=== PATIENT | male | born 1955 | race Hispanic/Latino ===

== ENCOUNTER 2018-01-24 20:36 | Emergency (ER) | payer BC ==
[2018-01-24 22:09] LABS: Urine Blood 3+ (NEG); Urine Glucose 1+ (NEG); Urine Protein 2+ (NEG); Urine pH 8.5 (5.0-7.0)
[2018-01-24 22:11] LABS: Urine Bacteria <20 /HPF (NONE SEEN); Urine Culture Reflex Order NOT NEEDED; Urine RBC >50 /HPF (NONE SEEN)
[2018-01-24 23:47] LABS: Absolute Lymphocytes (CBC) 1.2 K/uL (0.7-4.9); Absolute Monocytes 0.6 K/uL (0.1-1.3); Absolute Neutrophil 5.9 K/uL (1.8-8.0); Basophils % 1.1 % (0-1.3); Eosinophils % 2.9 % (0-4.4); Hematocrit 38.7 % (39.6-49.0); Lymphocytes % 14.7 % (15.3-44.8); MCH 30.1 pg (27.0-35.0); MCV 89.1 fL (80-100); MPV 8.5 fL (7.6-11.3); RBC Red Blood Cell Count 4.34 M/uL (4.33-5.43)
[2018-01-24 23:57] LABS: Bicarbonate 27 mEq/L (21-31); Glucose Level 186 mg/dL (65-120); Potassium 3.9 mEq/L (3.6-5.0); Sodium Level 135 mEq/L (135-145)
[2018-01-24 23:58] LABS: BUN Blood Urea Nitrogen 28 mg/dL (6-20); Glomerular Filtration Rate > 90 mL/min (=/>90)
--- NOTE | 2018-01-25 00:09 | ER ---
Nurse's Notes [facility] Name: Bryan Crawford Age: 62 yrs Sex: Male : 1955 Arrival Date: 01/24/2018 Time: 20:40 Bed 15 Private MD: Diagnosis: Enlarged prostate with lower urinary tract symptoms;Hematuria Presentation: 01/24 20:53 Presenting complaint: Patient states: Blood in urine since this AM. Denies pain. aj Transition of care: patient was not received from another setting of care. Onset of symptoms was January 24, 2018. Care prior to arrival: None. 20:53 Method Of Arrival: Ambulatory aj 20:53 Acuity: MIGUELINA 3 aj Triage Assessment: 20:56 General: Appears in no apparent distress. comfortable, Behavior is calm, cooperative, aj appropriate for age. Pain: Denies pain. Neuro: Level of Consciousness is awake, alert, obeys commands, Oriented to person, place, time, situation. Respiratory: Airway is patent Respiratory effort is even, unlabored, Respiratory pattern is regular, symmetrical. : Reports blood in urine. Derm: Skin is intact, is healthy with good turgor, Skin is pink, warm \\T\\ dry. normal. Historical: - Allergies: 20:56 No Known Allergies; aj - Home Meds: 20:56 glipizide 10 mg oral tab [Active]; finasteride 5 mg oral tab 1 tab once daily [Active]; aj - PMHx: 20:56 Hypertension; Diabetes - NIDDM; aj - PSHx: 20:56 "prostate surgery"; aj - Immunization history:: Adult Immunizations up to date. - Social history:: Smoking status: Patient/guardian denies using tobacco. Screenin:33 Abuse screen: Denies threats or abuse. Denies injuries from another. Nutritional ao screening: No deficits noted. Tuberculosis screening: No symptoms or risk factors identified. Fall Risk None identified. Assessment: 21:28 General: Appears in no apparent distress. comfortable, Behavior is calm, cooperative, ao appropriate for age. Pain: Denies pain. Neuro: Level of Consciousness is awake, alert, obeys commands, Oriented to person, place, time, situation, Moves all extremities. Speech is normal, Facial symmetry appears normal. Cardiovascular: Denies chest pain, shortness of breath, Heart tones S1 S2 Capillary refill < 3 seconds Patient's skin is warm and dry. Respiratory: Airway is patent Respiratory effort is even, unlabored, Respiratory pattern is regular, symmetrical, Breath sounds are clear bilaterally. GI: Abdomen is round Bowel sounds present X 4 quads. : Reports burning with urination, urgency, urinary frequency, Blood in the urine. EENT: No signs and/or symptoms were reported regarding the EENT system. Derm: No signs and/or symptoms reported regarding the dermatologic system. Musculoskeletal: No signs and/or symptoms reported regarding the musculoskeletal system. 21:55 Reassessment: Patient appears in no apparent distress at this time. No changes from ao previously documented assessment. Patient and/or family updated on plan of care and expected duration. Pain level reassessed. Patient is alert, oriented x 3, equal unlabored respirations, skin warm/dry/pink. Waiting on a provider. 22:51 Reassessment: Bladder scanner patient had 159 ML in the bladder after an hour he ao urinate. 23:25 Reassessment: Patient appears in no apparent distress at this time. Patient and/or ao family updated on plan of care and expected duration. Pain level reassessed. Patient is alert, oriented x 3, equal unlabored respirations, skin warm/dry/pink. Waiting on CT report Patient denies pain at this time. Vital Signs: 20:56 BP 139 / 80; Pulse 90; Resp 20; Temp 98.1; Pulse Ox 97% on R/A; Weight 86.18 kg; Height aj 5 ft. 6 in. (167.64 cm); Pain 0/10; 21:55 BP 141 / 83; Pulse 88; Resp 16; Pulse Ox 97% on R/A; Pain 0/10; ao 23:25 BP 132 / 78; Pulse 71; Resp 16; Pulse Ox 97% on R/A; Pain 0/10; ao 20:56 Body Mass Index 30.67 (86.18 kg, 167.64 cm) aj ED Course: 20:40 Patient arrived in ED. al2 20:54 Triage completed. aj 20:56 Arm band placed on left wrist. Patient placed in waiting room, Patient notified of wait aj time. 21:28 Tera Bullard, RN is Primary Nurse. ao 21:33 Patient has correct armband on for positive identification. Pulse ox on. NIBP on. ao 21:44 Inserted saline lock: 20 gauge in right antecubital area, using aseptic technique. jb5 Blood collected. 22:29 Concepcion Rojas F[facility]-C [facility]. snw 22:30 Dannie Casillas MD is Attending Physician. snw 22:51 Bladder scan completed. 159 ML left in the Bladder. ao 22:58 CT Stone Protocol In Process Unspecified. EDAK 01/25 00:08 Alvin Avila MD is Referral Physician. snw 00:28 No provider procedures requiring assistance completed. IV discontinued, intact, ao bleeding controlled, No redness/swelling at site. Pressure dressing applied. Administered Medications: 00:20 Drug: Rocephin 1 grams Route: IV; Rate: calculated rate; Site: left antecubital; ao 00:27 Follow up: IV Status: Completed infusion; Infusion continued upon admission ao 00:27 Drug: Cipro 500 mg Route: PO; ao 00:27 Follow up: Response: Medication administered at discharge. ao Outcome: 00:09 Discharge ordered by . snw 00:28 Discharged to home ambulatory. ao 00:28 Condition: stable 00:28 Discharge instructions given to patient, Instructed on discharge instructions, follow up and referral plans. Demonstrated understanding of instructions, follow-up care, medications, Prescriptions given X 1. 00:29 Patient left the ED. ao Signatures: Dispatcher [employer] Nae Quintana, RN Concepcion Lira FNP-C FNP-Csnw Tera Bullard RN Astrid Bryant [id number] Trinidad Steele2
--- NOTE | 2018-01-25 00:09 | EDPHYS ---
Physician Documentation [facility] Name: Bryan Crawford Age: 62 yrs Sex: Male : 1955 Arrival Date: 01/24/2018 Time: 20:40 Bed 15 Private MD: ED Dannie Arellano HPI: 01/24 23:34 This 62 yrs old Male presents to ER via Ambulatory with complaints of Urinary snw Problem, BLOOD IN URINE. 23:34 The patient presents with hematuria. Onset: The symptoms/episode began/occurred snw suddenly, 0430 today. Modifying factors: The symptoms are alleviated by nothing. Associated signs and symptoms: The patient has no apparent associated signs or symptoms. Severity of symptoms: At their worst the symptoms were mild. The patient has not experienced similar symptoms in the past. The patient has not recently seen a physician. hx of DM, HTN. Historical: - Allergies: 20:56 No Known Allergies; aj - Home Meds: 20:56 glipizide 10 mg oral tab [Active]; finasteride 5 mg oral tab 1 tab once daily [Active]; aj - PMHx: 20:56 Hypertension; Diabetes - NIDDM; aj - PSHx: 20:56 "prostate surgery"; aj - Immunization history:: Adult Immunizations up to date. - Social history:: Smoking status: Patient/guardian denies using tobacco. ROS: 23:34 Constitutional: Negative for fever, chills, and weight loss, Eyes: Negative for injury, snw pain, redness, and discharge, ENT: Negative for injury, pain, and discharge, Neck: Negative for injury, pain, and swelling, Cardiovascular: Negative for chest pain, palpitations, and edema, Respiratory: Negative for shortness of breath, cough, wheezing, and pleuritic chest pain, Abdomen/GI: Negative for abdominal pain, nausea, vomiting, diarrhea, and constipation, Back: Negative for injury and pain, MS/Extremity: Negative for injury and deformity, Skin: Negative for injury, rash, and discoloration, Neuro: Negative for headache, weakness, numbness, tingling, and seizure. 23:34 : Positive for hematuria. Exam: 23:34 Constitutional: This is a well developed, well nourished patient who is awake, alert, snw and in no acute distress. Head/Face: Normocephalic, atraumatic. Eyes: Pupils equal round and reactive to light, extra-ocular motions intact. Lids and lashes normal. Conjunctiva and sclera are non-icteric and not injected. Cornea within normal limits. Periorbital areas with no swelling, redness, or edema. ENT: Nares patent. No nasal discharge, no septal abnormalities noted. Tympanic membranes are normal and external auditory canals are clear. Oropharynx with no redness, swelling, or masses, exudates, or evidence of obstruction, uvula midline. Mucous membranes moist. Neck: Trachea midline, no thyromegaly or masses palpated, and no cervical lymphadenopathy. Supple, full range of motion without nuchal rigidity, or vertebral point tenderness. No Meningismus. Chest/axilla: Normal chest wall appearance and motion. Nontender with no deformity. No lesions are appreciated. Cardiovascular: Regular rate and rhythm with a normal S1 and S2. No gallops, murmurs, or rubs. Normal PMI, no JVD. No pulse deficits. Respiratory: Lungs have equal breath sounds bilaterally, clear to auscultation and percussion. No rales, rhonchi or wheezes noted. No increased work of breathing, no retractions or nasal flaring. Abdomen/GI: Soft, non-tender, with normal bowel sounds. No distension or tympany. No guarding or rebound. No evidence of tenderness throughout. Back: No spinal tenderness. No costovertebral tenderness. Full range of motion. Skin: Warm, dry with normal turgor. Normal color with no rashes, no lesions, and no evidence of cellulitis. MS/ Extremity: Pulses equal, no cyanosis. Neurovascular intact. Full, normal range of motion. Neuro: Awake and alert, GCS 15, oriented to person, place, time, and situation. Cranial nerves II-XII grossly intact. Motor strength 5/5 in all extremities. Sensory grossly intact. Cerebellar exam normal. Normal gait. Vital Signs: 20:56 BP 139 / 80; Pulse 90; Resp 20; Temp 98.1; Pulse Ox 97% on R/A; Weight 86.18 kg; Height aj 5 ft. 6 in. (167.64 cm); Pain 0/10; 21:55 BP 141 / 83; Pulse 88; Resp 16; Pulse Ox 97% on R/A; Pain 0/10; ao 23:25 BP 132 / 78; Pulse 71; Resp 16; Pulse Ox 97% on R/A; Pain 0/10; ao 20:56 Body Mass Index 30.67 (86.18 kg, 167.64 cm) aj MDM: 22:30 Patient medically screened. snw 01/25 00:17 Data reviewed: vital signs, nurses notes. Data interpreted: Pulse oximetry: on room air snw is 97 %. Interpretation: normal. Counseling: I had a detailed discussion with the patient and/or guardian regarding: the historical points, exam findings, and any diagnostic results supporting the discharge/admit diagnosis, the presence of at least one elevated blood pressure reading (>120/80) during this emergency department visit, lab results, radiology results, the need for outpatient follow up, to return to the emergency department if symptoms worsen or persist or if there are any questions or concerns that arise at home. Special discussion: Based on the patient's Hx, exam, and Dx evaluation, there is no indication for emergent surgery or inpatient Tx. It is understood by the patient/guardian that if the Sx's persist or worsen they need to return immediately for re-evaluation. I have referred the patient to see his PCP for further evaluation of high blood pressure. Based on the history and exam findings, there is no indication for further emergent testing or inpatient evaluation. I discussed with the patient/guardian the need to see the primary care provider for further evaluation of the symptoms. I discussed with the patient/guardian the need to see the urologist for further evaluation of the symptoms. 01/24 20:51 Order name: Urine Culture [facility] 01/24 20:51 Order name: Urine Microscopic Only; Complete Time: 22:30 snw 01/24 22:06 Order name: Urine Dipstick--Ancillary (enter results); Complete Time: 22:30 em1 01/24 23:29 Order name: CBC with Diff; Complete Time: 23:52 ao 01/24 23:29 Order name: Chem 7; Complete Time: 00:05 ao 01/24 23:35 Order name: CPK; Complete Time: 00:05 snw 01/24 20:51 Order name: Urine Dipstick-Ancillary (obtain specimen); Complete Time: 21:37 snw 01/24 22:31 Order name: Bladder Scanner; Complete Time: 22:49 snw 01/24 22:31 Order name: CT Stone Protocol [facility] Administered Medications: 00:20 Drug: Rocephin 1 grams Route: IV; Rate: calculated rate; Site: left antecubital; ao 00:27 Follow up: IV Status: Completed infusion; Infusion continued upon admission ao 00:27 Drug: Cipro 500 mg Route: PO; ao 00:27 Follow up: Response: Medication administered at discharge. ao Disposition: 07:04 Co-signature as Attending Physician, Dannie Casillas MD I agree with the assessment and robe plan of care. Disposition: 01/25/18 00:09 Discharged to Home. Impression: Enlarged prostate with lower urinary tract symptoms, Hematuria. - Condition is Stable. - Discharge Instructions: Benign Prostatic Hypertrophy, Hematuria, Adult. - Prescriptions for Cipro 500 mg Oral Tablet - take 1 tablet by ORAL route every 12 hours for 7 days; 14 tablet. - Medication Reconciliation Form, Thank You Letter, Antibiotic Education, Prescription Opioid Use form. - Follow up: Alvin Avila MD; When: 2 - 3 days; Reason: Recheck today's complaints, Continuance of care, Re-evaluation by your physician. Signatures: Dispatcher [employer] Nae Quintana, Dannie Paiz RN, MD MD cha Therrien, Shelly, SENIOR ONLINE MARKETING MANAGER-C SENIOR ONLINE MARKETING MANAGER-Csnw Tera Bullard RN YON alegre
[2018-01-25] MEDS ORDERED: CEFTRIAXONE/SWI 1gm 1 GM/10 ML SYR ONE (00:16)
[2018-01-25] MEDS ORDERED: CIPROFLOXACIN HCL 500 MG TAB ONE (00:16)
--- NOTE | 2018-01-25 08:36 | RAD REPORT ---
EXAM DESCRIPTION: CT - Stone Protocol - 01/25/2018 6:42 am CLINICAL HISTORY: Abdominal pain, flank pain, hematuria. A preliminary written report was provided at the time of the study, and the report was reviewed prio r to final dictation. COMPARISON: None. TECHNIQUE: Axial 5 mm thick images were obtained without oral or IV contrast. The [id number] span s the entirety of the system including uppermost abdomen and lung bases. All CT scans are performed using dose optimization technique as appropriate and may include automated exposure control or mA/KV adjustment according to patient size. FINDINGS: No hydronephrosis is present and no obstructing ureteral calculi. No suspicious renal mass es. Isodense masses and pyelonephritis are not excluded on a stone protocol CT scan. No bladder calcu li and no bladder wall thickening seen. Prominent symmetric seminal vesicles are present. Prostate gl and is quite enlarged measuring 7.5 x 6.9 cm in AP and transverse dimensions. Prostate projects into the bladder base. CT imaging is limited in ability to assess extrinsic compression versus invasion. A few prostate calcifications are present. Imaged portions of the liver, spleen and pancreas show no suspicious findings on non-contrast imaging . Gallbladder is contracted. No biliary tree dilatation. Gallstones can be occult. No significant adr enal finding. No stomach or small bowel suspicious finding. There is moderate stool volume filling but not dilating the entire colon. Only trace amounts of diverticulosis noted. No active GI process seen. No mass or bulky lymphadenopathy. A very small 1 centimeter umbilical hernia is present. Fat extends into the origin of each inguinal canal. No acute component No free air, free fluid or inflammatory st randing. Prominent disc and bony degenerative changes are present. There is a 50% wedge compression deformity of the L2 body. No additional finding seen that would indicate this is an acute process. IMPRESSION: Marked enlargement of the prostate gland causing mass effect of the bladder base. No hydronephrosis, obstructing calculus or acute finding otherwise noted. Isodense masses and pyelonephritis are not excluded on stone protocol technique. Bowel and solid abdominal viscera are without acute finding. Advanced lumbar spine degenerative change with 50% L2 compression fracture suspected to be old.
== END 2018-01-25 00:29 | disposition home or self-care (01) ==
LOC: ER 20:36
DX: N40.1 Benign prostatic hyperplasia with lower urinary tract symptoms (principal); I10 Essential (primary) hypertension; E11.9 Type 2 diabetes mellitus without complications
CPT/HCPCS: 36415; 74176; 76377; 80048; 81003; 81015; 82550; 85025; 87086; 87088; 96374; 99284; J0696

== ENCOUNTER 2021-08-07 19:11 | Emergency (ER) | payer BC ==
--- NOTE | 2021-08-07 20:00 | EDPHYS ---
Physician Documentation [facility] Name: Bryan Crawford Age: 65 yrs Sex: Male : 1955 Arrival Date: 08/07/2021 Time: 19:14 Bed 23 Private MD: ED Physician Dannie Casillas HPI: 08/07 19:57 This 65 yrs old Male presents to ER via Ambulatory with complaints of High jmm Blood Pressure, High Blood Sugar. 19:57 Onset: The symptoms/episode began/occurred at an unknown time. Is a 65-year-old male jmm with a history of diabetes mellitus and hypertension the presents emerged department with complaints of elevated blood pressure and high blood sugar. Denies chest pain, shortness of breath, vomiting, abdominal pain. Patient states he is been out of his medication. Patient states he takes glipizide, Metformin, and an unknown blood pressure medication. Patient sees his PCP this Sunday.. Historical: - Allergies: 19:25 No Known Allergies; em - PMHx: 19:25 Diabetes - NIDDM; Hypertension; em - PSHx: 19:25 prostate; em - Immunization history:: Client reports having NOT received the Covid vaccine. - Social history:: Smoking status: Patient denies any tobacco usage or history of. ROS: 19:57 Constitutional: Negative for fever, chills, and weight loss, Cardiovascular: Negative jmm for chest pain, palpitations, and edema, Respiratory: Negative for shortness of breath, cough, wheezing, and pleuritic chest pain, Abdomen/GI: Negative for abdominal pain, nausea, vomiting, diarrhea, and constipation. 19:57 All other systems are negative. Exam: 19:57 Constitutional: This is a well developed, well nourished patient who is awake, alert, jmm and in no acute distress. Head/Face: atraumatic. Eyes: EOMI, no conjunctival erythema appreciated ENT: Moist Mucus Membranes Neck: Trachea midline, Supple Chest/axilla: Normal chest wall appearance and motion. Cardiovascular: Regular rate and rhythm. No edema appreciated Respiratory: Normal respirations, no respiratory distress appreciated Abdomen/GI: Non distended, soft Back: Normal ROM Skin: General appearance color normal MS/ Extremity: Moves all extremities, no obvious deformities appreciated, no edema noted to the lower extremities Neuro: Awake and alert, normal gait Psych: Behavior is normal, Mood is normal, Patient is cooperative and pleasant Vital Signs: 19:22 BP 169 / 100; Pulse 74; Resp 18; Temp 98.7; Pulse Ox 100% on R/A; Weight 90.26 kg; em Height 5 ft. 6 in. (167.64 cm); Pain 0/10; 19:30 BP 125 / 66; Pulse 76; Resp 20; Pulse Ox 100% on R/A; cc4 20:05 BP 143 / 68; Pulse 76; Resp 20; Temp 98.1; Pulse Ox 99% on R/A; cc4 19:22 Body Mass Index 32.12 (90.26 kg, 167.64 cm) em MDM: 19:29 Patient medically screened. [facility] 19:58 Data reviewed: vital signs, nurses notes. Counseling: I had a detailed discussion with carmelita the patient and/or guardian regarding: the historical points, exam findings, and any diagnostic results supporting the discharge/admit diagnosis, lab results, the need for outpatient follow up, to return to the emergency department if symptoms worsen or persist or if there are any questions or concerns that arise at home. ED course: Patient is alert nontoxic in appearance NAD. Patient is unsure of his dosages. Unable to provide refills but was given patient strict return precautions. Patient understood and agrees to plan of care.. Administered Medications: No medications were administered Disposition: 08/08 10:42 Co-signature as Attending Physician, Dannie Casillas MD I agree with the assessment and [facility] plan of care. Disposition Summary: 08/07/21 19:59 Discharge Ordered Location: Home [facility] Condition: Stable [facility] Diagnosis - Hyperglycemia, unspecified [facility] Followup: [facility] - With: Private Physician - When: 2 - 3 days - Reason: Recheck today's complaints, Continuance of care, Re-evaluation by your physician Discharge Instructions: - Discharge Summary Sheet [facility] - Hyperglycemia [facility] Forms: - Medication Reconciliation Form [facility] - Thank You Letter marge - Antibiotic Education [facility] - Prescription Opioid Use [facility] Prescriptions: - Metformin 500 mg Oral Tablet - take 1 tablet by ORAL route once daily for 7 days Then take 1 tablet with [facility] morning meals AND evening meals; 21 tablet; Refills: 0, Product Selection Permitted Signatures: Dannie Casillas MD MD cha Mickail, Joel, PA PA jmm Munoz Sincere, RN RN em
--- NOTE | 2021-08-07 20:00 | ER ---
Nurse's Notes [facility] Name: Bryan Crawford Age: 65 yrs Sex: Male : 1955 Arrival Date: 08/07/2021 Time: 19:14 Bed 23 Private MD: Diagnosis: Hyperglycemia, unspecified Presentation: 08/07 19:22 Chief complaint: Patient states: checked his BP at home and was 160s systolic at home, em also checked BGL and read 289 at 6 pm, denies chest pain, headache, or n/v. Coronavirus screen: Vaccine status: Patient reports being unvaccinated. Ebola Screen: Patient negative for fever greater than or equal to 101.5 degrees Fahrenheit, and additional compatible Ebola Virus Disease symptoms Patient denies exposure to infectious person. Patient denies travel to an Ebola-affected area in the 21 days before illness onset. No symptoms or risks identified at this time. Initial Sepsis Screen: Does the patient meet any 2 criteria? No. Patient's initial sepsis screen is negative. Does the patient have a suspected source of infection? No. Patient's initial sepsis screen is negative. Risk Assessment: Do you want to hurt yourself or someone else? Patient reports no desire to harm self or others. Onset of symptoms was August 07, 2021. 19:22 Method Of Arrival: Ambulatory em 19:22 Acuity: MIGUELINA 3 em Historical: - Allergies: 19:25 No Known Allergies; em - PMHx: 19:25 Diabetes - NIDDM; Hypertension; em - PSHx: 19:25 prostate; em - Immunization history:: Client reports having NOT received the Covid vaccine. - Social history:: Smoking status: Patient denies any tobacco usage or history of. Screenin:30 Abuse screen: Denies threats or abuse. Nutritional screening: No deficits noted. cc4 Tuberculosis screening: No symptoms or risk factors identified. Fall Risk None identified. Assessment: 19:30 General: Appears in no apparent distress. Behavior is calm, cooperative. Pain: Denies cc4 pain. Neuro: No deficits noted. Level of Consciousness is awake, alert, obeys commands, Oriented to person, place, time, situation. Cardiovascular: No deficits noted. Denies chest pain. Respiratory: No deficits noted. Airway is patent Breath sounds are clear bilaterally. GI: No deficits noted. No signs and/or symptoms were reported involving the gastrointestinal system. GI: Abdomen is round non-distended, Bowel sounds present X 4 quads. : No signs and/or symptoms were reported regarding the genitourinary system. EENT: No signs and/or symptoms were reported regarding the EENT system. Derm: No signs and/or symptoms reported regarding the dermatologic system. Skin is intact. Musculoskeletal: No deficits noted. No signs and/or symptoms reported regarding the musculoskeletal system. Capillary refill < 3 seconds, Range of motion: intact in all extremities. Vital Signs: 19:22 BP 169 / 100; Pulse 74; Resp 18; Temp 98.7; Pulse Ox 100% on R/A; Weight 90.26 kg; em Height 5 ft. 6 in. (167.64 cm); Pain 0/10; 19:30 BP 125 / 66; Pulse 76; Resp 20; Pulse Ox 100% on R/A; cc4 20:05 BP 143 / 68; Pulse 76; Resp 20; Temp 98.1; Pulse Ox 99% on R/A; cc4 19:22 Body Mass Index 32.12 (90.26 kg, 167.64 cm) em ED Course: 19:14 Patient arrived in ED. cf2 19:25 Triage completed. em 19:25 Arm band placed on. 19:27 Mckayla Ellison, YON is Primary Nurse. cc4 19:27 Primo Kuhn PA is PHCP. [facility] 19:27 Lorenzo Sanchez MD is Attending Physician. [facility] 19:29 Attending Physician role handed off by Lorenzo Sanchez MD [facility] 19:29 Dannie Casillas MD is Attending Physician. [facility] 19:30 Patient has correct armband on for positive identification. Bed in low position. Call cc4 light in reach. Side rails up X 1. 20:05 No provider procedures requiring assistance completed. cc4 20:05 Patient did not have IV access during this emergency room visit. cc4 Administered Medications: No medications were administered Outcome: 19:59 Discharge ordered by . [facility] 20:05 Condition: stable cc4 20:05 Discharged to home ambulatory. cc4 20:05 Discharge instructions given to patient, Instructed on discharge instructions, follow up and referral plans. medication usage, Demonstrated understanding of instructions, follow-up care, medications. 20:15 Patient left the ED. cc4 Signatures: Dannie Casillas MD MD cha Mickail, Joel, PA PA jmm Munoz, Edgar, RN RN Ryland Fraire [facility] Mckayla Ellison RN RN cc4
[2021-08-07 20:23] VITALS: BP 143/68; TEMP 98.1; O2SAT 99
== END 2021-08-07 20:15 | disposition home or self-care (01) ==
LOC: ER 19:11
DX: E11.65 Type 2 diabetes mellitus with hyperglycemia (principal); I10 Essential (primary) hypertension
CPT/HCPCS: 99281

== ENCOUNTER 2023-02-09 09:11 | Emergency (ER) | payer BC, OTHER ==
--- OUTSIDE RECORDS SUMMARY | 2023-02-09 09:18 | XMS REPORT | Continuity of Care Document ---
:1955 Author Organization [facility] t Address [address] [facility] [address] [place] [address] Care Team Providers Name Role Phone [place] Bravo Primary Care Physician [phone] Problems This patient has no known problems. Allergies, Adverse Reactions, Alerts This patient has no known allergies or adverse reactions. Medications Ordered Filled Start Stop Current Ordering Indication Dosage Frequency Signature Comments Components Source Medication Medication Date Date Medication? Clinician (SIG) Name Name LISINOPRIL/ 2-0 No HYDROCHLORO 8-19 THI 20-12.5 00:00: TAB 00 Jardiance 2-0 No 1mg 10 mg 6-06 tablet 00:00: 00 Dose 2022-0 No Unknown 6-06 00:00: 00 Januvia 100 2-0 No 1mg mg tablet 6-06 00:00: 00 lisinopril 2022-0 No 1mg 20 6-06 mg-hydrochl 00:00: orothiazide 00 12.5 mg tablet glipizide 2-0 No 1mg ER 10 mg 6-06 tablet, 00:00: extended 00 release 24 hr metformin 2022-0 No 1mg 1,000 mg 6-06 tablet 00:00: 00 Dose 2022-0 No Unknown 6-06 00:00: 00 metformin 2022-0 No 1mg 1,000 mg 5-27 tablet 00:00: 00 glipizide 2022-0 No 1mg ER 10 mg 5-27 tablet, 00:00: extended 00 release 24 hr lisinopril 2022-0 No 1mg 20 5-27 mg-hydrochl 00:00: orothiazide 00 12.5 mg tablet pravastatin 2-0 No 1mg 20 mg 5-27 tablet 00:00: 00 Januvia 100 2022-0 No 1mg mg tablet 5-27 00:00: 00 Dose 2022-0 No Unknown 5-27 00:00: 00 pravastatin 2-0 No 1mg 40 mg 4-25 tablet 00:00: 00 lisinopril 2-0 No 1mg 20 4-22 mg-hydrochl 00:00: orothiazide 00 12.5 mg tablet pravastatin 2-0 No 1mg 20 mg 4-22 tablet 00:00: 00 Januvia 100 2-0 No 1mg mg tablet 4-22 00:00: 00 metformin 2-0 No 1mg 1,000 mg 4-22 tablet 00:00: 00 glipizide 2-0 No 1mg ER 10 mg 4-22 tablet, 00:00: extended 00 release 24 hr Dose 2-0 No Unknown 4-22 00:00: 00 Dose 2-0 No Unknown 4-22 00:00: 00 Dose 2-0 No Unknown 4-22 00:00: 00 Dose 2022-0 No Unknown 4-22 00:00: 00 Dose 2022-0 No Unknown 4-22 00:00: 00 Dose 2022-0 No Unknown 4-22 00:00: 00 Dose 2022-0 No Unknown 4-22 00:00: 00 Dose 2022-0 No Unknown 4-22 00:00: 00 Dose 2-0 No Unknown 4-22 00:00: 00 Dose 2022-0 No Unknown 4-22 00:00: 00 Dose 2022-0 No Unknown 4-22 00:00: 00 Dose 1-1 No Unknown 0-29 00:00: 00 Dose 1-1 No Unknown 0-29 00:00: 00 Dose 1-1 No Unknown 0-29 00:00: 00 Dose 1-1 No Unknown 0-29 00:00: 00 Dose 1-1 No Unknown 0-25 00:00: 00 Victoza 1-0 No (18 2-Francisco J 0.6 4-22 mg/3 mg/0.1 mL 00:00: mL) (18 mg/3 00 mL) subcutaneou s pen injector pravastatin 2020-0 No 1mg 20 mg 4-17 tablet 00:00: 00 lisinopril 2020-0 No 1mg 20 4-17 mg-hydrochl 00:00: orothiazide 00 12.5 mg tablet glipizide 1-0 No 1mg ER 10 mg 4-17 tablet, 00:00: extended 00 release 24 hr metformin 1-0 No 1mg 1,000 mg 4-17 tablet 00:00: 00 pravastatin 1-0 No 1mg 20 mg 3-15 tablet 00:00: 00 lisinopril 1-0 No 1mg 20 3-15 mg-hydrochl 00:00: orothiazide 00 12.5 mg tablet metformin 1-0 No 1mg 500 mg 3-15 tablet 00:00: 00 glipizide 1-0 No 1mg ER 10 mg 3-15 tablet, 00:00: extended 00 release 24 hr metformin 2019-1 No 1mg 500 mg 2-05 tablet 00:00: 00 pravastatin 2020-1 No 1mg 20 mg 2-04 tablet 00:00: 00 lisinopril 2019-1 No 1mg 20 2-04 mg-hydrochl 00:00: orothiazide 00 12.5 mg tablet metformin 2019-1 No 1mg 500 mg 2-04 tablet 00:00: 00 glipizide 2019-1 No 1mg ER 10 mg 2-04 tablet, 00:00: extended 00 release 24 hr metformin 2020-1 No 1mg 500 mg 1-28 tablet 00:00: 00 pravastatin 2020-1 No 1mg 20 mg 1-28 tablet 00:00: 00 lisinopril 2020-1 No 1mg 20 1-28 mg-hydrochl 00:00: orothiazide 00 12.5 mg tablet glipizide 2019-1 No 1mg ER 10 mg 1-28 tablet, 00:00: extended 00 release 24 hr metformin 2020-0 No 1mg 500 mg 4-25 tablet 00:00: 00 pravastatin 2020-0 No 1mg 20 mg 4-25 tablet 00:00: 00 lisinopril 2020-0 No 1mg 20 4-25 mg-hydrochl 00:00: orothiazide 00 12.5 mg tablet metformin 2020-0 No 1mg 1,000 mg 4-25 tablet 00:00: 00 glipizide 2020-0 No 1mg ER 10 mg 4-25 tablet, 00:00: extended 00 release 24 hr metformin 2020-0 No 1mg 500 mg 4-13 tablet 00:00: 00 pravastatin 2020-0 No 1mg 20 mg 4-13 tablet 00:00: 00 lisinopril 2020-0 No 1mg 20 4-13 mg-hydrochl 00:00: orothiazide 00 12.5 mg tablet glipizide 2020-0 No 1mg ER 10 mg 4-13 tablet, 00:00: extended 00 release 24 hr metformin 2020-0 No 1mg 1,000 mg 4-13 tablet 00:00: 00 metformin 2019-1 No 1mg 500 mg 0-05 tablet 00:00: 00 pravastatin 2019-1 No 1mg 20 mg 0-05 tablet 00:00: 00 lisinopril 2019-1 No 1mg 20 0-05 mg-hydrochl 00:00: orothiazide 00 12.5 mg tablet metformin 2019-1 No 1mg 1,000 mg 0-05 tablet 00:00: 00 metformin 2019-0 No 1mg 500 mg 4-06 tablet 00:00: 00 pravastatin 2019-0 No 1mg 20 mg 4-06 tablet 00:00: 00 lisinopril 2019-0 No 1mg 20 4-06 mg-hydrochl 00:00: orothiazide 00 12.5 mg tablet metformin 2019-0 No 1mg 1,000 mg 4-06 tablet 00:00: 00 metformin 2018-0 No 1mg 500 mg 9-14 tablet 00:00: 00 pravastatin 2018-0 No 1mg 20 mg 9-14 tablet 00:00: 00 lisinopril 2018-0 No 1mg 20 9-14 mg-hydrochl 00:00: orothiazide 00 12.5 mg tablet metformin 2018-0 No 1mg 1,000 mg 9-14 tablet 00:00: 00 metformin 2018-0 No 1mg 500 mg 7-14 tablet 00:00: 00 lisinopril 2018-0 No 1mg 20 6-04 mg-hydrochl 00:00: orothiazide 00 12.5 mg tablet pravastatin 2018-0 No 1mg 20 mg 6-04 tablet 00:00: 00 metformin 2018-0 No 1mg 1,000 mg 6-04 tablet 00:00: 00 lisinopril 2018-0 No 1mg 20 5-14 mg-hydrochl 00:00: orothiazide 00 12.5 mg tablet pravastatin 2018-0 No 1mg 20 mg 5-14 tablet 00:00: 00 metformin 2018-0 No 1mg 1,000 mg 5-14 tablet 00:00: 00 lisinopril 2018-0 No 1mg 20 1-13 mg-hydrochl 00:00: orothiazide 00 12.5 mg tablet pravastatin 2018-0 No 1mg 20 mg 1-13 tablet 00:00: 00 metformin 2018-0 No 1mg 1,000 mg 1-13 tablet 00:00: 00 lisinopril 2017-1 No 1mg 20 2-28 mg-hydrochl 00:00: orothiazide 00 12.5 mg tablet metformin 2017-1 No 1mg 1,000 mg 2-28 tablet 00:00: 00 pravastatin 2017-1 No 1mg 20 mg 2-18 tablet 00:00: 00 lisinopril 2017-0 No 1mg 20 6-06 mg-hydrochl 00:00: orothiazide 00 12.5 mg tablet metformin 2017-0 No 1mg 1,000 mg 6-06 tablet 00:00: 00 lisinopril 2017-0 No 1mg 20 1-04 mg-hydrochl 00:00: orothiazide 00 12.5 mg tablet metformin 2017-0 No 1mg 1,000 mg 1-04 tablet 00:00: 00 lisinopril 2015-1 No 1mg 20 2-07 mg-hydrochl 00:00: orothiazide 00 12.5 mg tablet metformin 2015-1 No 1mg 1,000 mg 2-07 tablet 00:00: 00 lisinopril 2016-0 No 1mg 20 8-26 mg-hydrochl 00:00: orothiazide 00 12.5 mg tablet metformin 2016-0 No 1mg 1,000 mg 8-26 tablet 00:00: 00 lisinopril 2016-0 No 1mg 20 5-06 mg-hydrochl 00:00: orothiazide 00 12.5 mg tablet metformin 2015-0 No 1mg 1,000 mg 5-06 tablet 00:00: 00 metformin 2014-1 No 1mg 1,000 mg 2-23 tablet 00:00: 00 lisinopril 2014-1 No 1mg 20 2-23 mg-hydrochl 00:00: orothiazide 00 12.5 mg tablet lisinopril 2014-0 No 1mg 20 8-28 mg-hydrochl 00:00: orothiazide 00 12.5 mg tablet metformin 2014-0 No 1mg 1,000 mg 8-28 tablet 00:00: 00 lisinopril 2014-0 No 1mg 20 3-21 mg-hydrochl 00:00: orothiazide 00 12.5 mg tablet lisinopril 2014-0 No 1mg 20 3-21 mg-hydrochl 00:00: orothiazide 00 12.5 mg tablet metformin 2014-0 No 1mg 1,000 mg 3-21 tablet 00:00: 00 metformin 2014-0 No 1mg 1,000 mg 3-21 tablet 00:00: 00 Vital Signs Vital Name Observation Time Observation Value Comments Source BP Systolic 2022-06-23 09:38:00 155 mm[Hg] BP Diastolic 2022-06-23 09:38:00 83 mm[Hg] Weight Measured 2022-06-23 09:38:00 190.40 pounds Height Measured 2022-06-23 09:38:00 67.00 inches Body Temperature 2022-06-23 09:38:00 98.20 degrees Heart Rate 2022-06-23 09:38:00 73.00 /min Respiratory Rate 2022-06-23 09:38:00 18.00 /min BP Systolic 2022-03-18 08:29:00 138 mm[Hg] BP Diastolic 2022-03-18 08:29:00 83 mm[Hg] Weight Measured 2022-03-18 08:29:00 189.20 pounds Height Measured 2022-03-18 08:29:00 67.00 inches Body Temperature 2022-03-18 08:29:00 97.70 degrees Heart Rate 2022-03-18 08:29:00 72.00 /min Respiratory Rate 2022-03-18 08:29:00 BP Systolic 2022-02-03 08:42:00 151 mm[Hg] BP Diastolic 2022-02-03 08:42:00 87 mm[Hg] Weight Measured 2022-02-03 08:42:00 190.40 pounds Height Measured 2022-02-03 08:42:00 67.00 inches Body Temperature 2022-02-03 08:42:00 97.20 degrees Heart Rate 2022-02-03 08:42:00 78.00 /min Respiratory Rate 2022-02-03 08:42:00 16.00 /min BP Systolic 2021-08-12 09:31:00 180 mm[Hg] BP Diastolic 2021-08-12 09:31:00 92 mm[Hg] Weight Measured 2021-08-12 09:31:00 191.40 pounds Height Measured 2021-08-12 09:31:00 67.00 inches Body Temperature 2021-08-12 09:31:00 98.10 degrees Heart Rate 2021-08-12 09:31:00 55.00 /min Respiratory Rate 2021-08-12 09:31:00 16.00 /min BP Systolic 2021-08-05 09:19:00 184 mm[Hg] BP Diastolic 2021-08-05 09:19:00 90 mm[Hg] Weight Measured 2021-08-05 09:19:00 191.60 pounds Height Measured 2021-08-05 09:19:00 67.00 inches Body Temperature 2021-08-05 09:19:00 98.00 degrees Heart Rate 2021-08-05 09:19:00 73.00 /min Respiratory Rate 2021-08-05 09:19:00 17.00 /min BP Systolic 2021-01-29 08:35:00 138 mm[Hg] BP Diastolic 2021-01-29 08:35:00 72 mm[Hg] Weight Measured 2021-01-29 08:35:00 182.80 pounds Height Measured 2021-01-29 08:35:00 67.00 inches Body Temperature 2021-01-29 08:35:00 97.70 degrees Heart Rate 2021-01-29 08:35:00 63.00 /min Respiratory Rate 2021-01-29 08:35:00 17.00 /min BP Systolic 2021-01-29 08:20:00 138 mm[Hg] BP Diastolic 2021-01-29 08:20:00 72 mm[Hg] Weight Measured 2021-01-29 08:20:00 182.80 pounds Height Measured 2021-01-29 08:20:00 67.00 inches Body Temperature 2021-01-29 08:20:00 97.70 degrees Heart Rate 2021-01-29 08:20:00 63.00 /min Respiratory Rate 2021-01-29 08:20:00 17.00 /min BP Systolic 2020-09-17 10:33:00 150 mm[Hg] BP Diastolic 2020-09-17 10:33:00 83 mm[Hg] Weight Measured 2020-09-17 10:33:00 188.20 pounds Height Measured 2020-09-17 10:33:00 67.00 inches Body Temperature 2020-09-17 10:33:00 98.50 degrees Heart Rate 2020-09-17 10:33:00 60.00 /min Respiratory Rate 2020-09-17 10:33:00 16.00 /min BP Systolic 2020-09-17 09:36:00 150 mm[Hg] BP Diastolic 2020-09-17 09:36:00 83 mm[Hg] Weight Measured 2020-09-17 09:36:00 188.20 pounds Height Measured 2020-09-17 09:36:00 67.00 inches Body Temperature 2020-09-17 09:36:00 98.50 degrees Heart Rate 2020-09-17 09:36:00 60.00 /min Respiratory Rate 2020-09-17 09:36:00 16.00 /min BP Systolic 2020-02-07 14:31:00 127 mm[Hg] BP Diastolic 2020-02-07 14:31:00 73 mm[Hg] Weight Measured 2020-02-07 14:31:00 178.40 pounds Height Measured 2020-02-07 14:31:00 67.00 inches Body Temperature 2020-02-07 14:31:00 98.00 degrees Heart Rate 2020-02-07 14:31:00 90.00 /min Respiratory Rate 2020-02-07 14:31:00 17.00 /min Procedures Procedure Date / Time Performed Performing Clinician [facility] e [address] Ecg Routine Ecg W/least 2016-07-29 00:00:00 Lds W/i r Plan of Care Planned Activity Planned Date Details Comments Source Goal Plan of Care Note [code = 06411-4] Goal Plan of Care Note [code = 65847-1] Goal Plan of Care Note [code = 69337-3] Goal Plan of Care Note [code = 00886-9] Goal Plan of Care Note [code = 19999-7] Goal Plan of Care Note [code = 20144-5] Goal Plan of Care Note [code = 06199-9] Goal Plan of Care Note [code = 60414-1] Goal Plan of Care Note [code = 92092-6] Goal Plan of Care Note [code = 15451-0] Goal Plan of Care Note [code = 86684-6] Goal Plan of Care Note [code = 35871-5] Goal Plan of Care Note [code = 09073-8] Goal Plan of Care Note [code = 90427-6] Goal Plan of Care Note [code = 84515-4] Goal Plan of Care Note [code = 55779-4] Goal Plan of Care Note [code = 20081-3] Goal Plan of Care Note [code = 92847-9] Encounters Start End Encounter Admission Attending Care Care Encounter Source Date/Time Date/Time Type Type Clinicians Facility Department ID 2023-02-02 2023-02-02 Outpatient [facility] [id number] 09:15:08 09:15:08 [address] [place] 2023-01-26 2023-01-26 Outpatient [facility] S[facility] [id number] 11:11:22 11:11:22 [address] [place] 2022-09-25 2022-09-25 Outpatient [facility] SFA [id number] [facility] 17:38:13 17:38:13 [address] [place] 2022-06-23 2022-06-23 Outpatient [id number] 00:00:00 00:00:00 Visit [id number] Results Test Description Test Time Test Comments Results Result Comments Source RENAL FUNCTION PANEL 2023-02-03 04:17:16 Test Item Value Reference Range Interpretation Comme nts GLUCOSE (test code = 2217) 161 MG/DL 70-99 H BUN (test code = 2208) 21 MG/DL 8-23 CREATININE (test code = 0.94 MG/DL 0.80-1.40 2213) eGFR (2020 CKD-EPI) (test 89 ML/MIN/1.73 >60 code = 34225) CALC BUN/CREAT (test code = 22 RATIO 6-28 2234) SODIUM (test code = 2231) 141 MEQ/L 133-146 POTASSIUM (test code = 2228) 4.3 MEQ/L 3.5-5.4 CHLORIDE (test code = 2215) 104 MEQ/L 95-107 CARBON DIOXIDE (test code = 25 MEQ/L 2205) CALCIUM (test code = 2209) 9.4 MG/DL 8.5-10.5 PHOSPHORUS (test code = 3.3 MG/DL 2.5-4.5 2226) ALBUMIN (test code = 2201) 4.6 G/DL 3.5-5.2 [facility] has important pathology staff changes effective 12/13. New pathology staff will provide uninterrupted, excellent patient care an d clinical consultation. S ee URL: [email or web address] UNLESS OTHERW ISE INDICATED, ALL TESTING PER FORMED AT [address], [place] [address] GENERAL FARM MANAGER: Edmar العلي [id number] [place] [id number] ALBUMIN/CREATININE RATIO, URINE, [id number] 04:57:10 Test Item Value Reference Range Interpretation Comments CREATININE, URINE, 138.6 MG/DL NOT ESTAB CONC. (test code = 2072) ALBUMIN, URINE, 7.7 MG/DL NOT ESTAB RANDOM (test code = 59326) CALC ALBUMIN/CREAT, 56 MG/G <30 H Note: RND (test code = Albumin/Cre atinine 75498) ratio reference interval reflec ts ADA and NKF guideli hernesto. HEMOGLOBIN [id number] 02:55:27 Test Item Value Reference Range Interpretation Comments HEMOGLOBIN A1c (test 7.1 % 4.2-5.6 H [employer] AN DIABETES code = 84896) ASSOCIATION IDELINES FOR HGB A1C: PREDIABETES/INC REASED RISK . . . . . . . 5.7 -6.4% DIAGNOSIS OF DI ABETES . . . . . . . . . >=6 .5% WITH CONFIRMATION OR APPROPRIATE SYMPTOMS NOTE: ASSAY MAY BE AFFECTED BY HEMOGLOBINOPATH IES (SICKLE CELL ANEMIA, S- C DISEASE, OTHERS) OR HERMINIA FICIALLY LOWERED BY DECR EASED RED CELL SURVIVAL ( HEMOLYTIC ANEMIAS, BLOOD LOSS, ETC.). CONSIDER ALTERN ATE TESTING OR LABORATORY C ONSULTATION. [facility] has imp ortant pathology staff changes effective 12/13. New pathology s taff will provide uninter rupted, excellent patie nt care and clinical consul tation. See URL: [email or web address]. UNLESS OTH ERWISE INDICATED, ALL TESTING [facility]. [address] [place] [address] LABORATOR Y DIRECTOR: DANILO MCCORMACK M.D. CLIA NUMBER [id number] [place] O. [id number] HEMOGLOBIN [id number] 06:24:42 Test Item Value Reference Range Interpretation Comments HEMOGLOBIN A1c (test 7.3 % 4.2-5.6 H [employer] DIABETES code = 81891) ASSOCIATION IDELINES FOR HGB A1C: PREDIABETES/INC REASED RISK . . . . . . . 5.7 -6.4% DIAGNOSIS OF DI ABETES . . . . . . . . . >=6 .5% WITH CONFIRMATION OR APPROPRIATE SYMPTOMS NOTE: ASSAY MAY BE AFFECTED BY HEMOGLOBINOPATH IES (SICKLE CELL ANEMIA, S- C DISEASE, OTHERS) OR HERMINIA FICIALLY LOWERED BY DECR EASED RED CELL SURVIVAL ( HEMOLYTIC ANEMIAS, BLOOD LOSS, ETC.). CONSIDER ALTERN ATE TESTING OR LABORATORY C ONSULTATION. UNLESS OTHERWIS E INDICATED, ALL TESTING PER FORMED [facility] [employer] [facility]. [address] [place] [address] LABORATORY DIRE CTOR: JOSE LUIS MACIEL M.D. CLIA NUMBER [id number] [place]. [id number] OCCULT BLD,FECAL,IMMUNOASSAY [id number] 17:17:14 Test Item Value Reference Range Interpretation Comments OCCULT BLD, FECAL NEGATIVE NEGATIVE Note: Britni salazar received (test code = 00403) in an ex pired collection system. Results and details of anal ysis reviewed by [facility] SATISH ZUNIGA M.D. UNLESS OTHERWISE INDIC ATED, ALL TESTING PERFORM ED [facility] [email or web address] [facility]. [address] [place] [address] LABORATORY DIRE CTOR: Alessandro YUEN CLIA NUMBER [id number] [place]CREDITATION N O. [id number] OCCULT BLD,FECAL,IMMUNOASSAY [id number] 00:00:00 Test Item Value Reference Range Interpretation Comments OCCULT BLD, FECAL (test code = NEGATIVE 59668) OCCULT BLD,FECAL,IMMUNOASSAY [id number] 00:00:00 Test Item Value Reference Range Interpretation Comments OCCULT BLD, FECAL (test code = NEGATIVE 35818) OCCULT BLD,FECAL,IMMUNOASSAY [id number] 00:00:00 Test Item Value Reference Range Interpretation Comments OCCULT BLD, FECAL (test code = NEGATIVE 45856) COMPREHENSIVE METABOLIC [id number] 01:35:20 Test Item Value Reference Range Interpretation Comments GLUCOSE (test code = 139 MG/DL 70-99 H 2216) BUN (test code = 26 MG/DL 8-23 H 2207) CREATININE (test 0.87 MG/DL 0.80-1.40 code = 221) eGFR (2020 CKD-EPI) 96 ML/MIN/1.73 >60 (test code = 93246) CALC BUN/CREAT (test 30 RATIO 6-28 H code = 2235) SODIUM (test code = 140 MEQ/L 522-461 5577) POTASSIUM (test code 5.1 MEQ/L 3.5-5.4 = 2227) CHLORIDE (test code 100 MEQ/L 95-107 = 2214) CARBON DIOXIDE (test 25 MEQ/L 19-31 code = 2206) CALCIUM (test code = 10.3 MG/DL 8.5-10.5 2208) PROTEIN, TOTAL (test 7.4 G/DL 6.1-8.3 code = 222) ALBUMIN (test code = 4.8 G/DL 3.5-5.2 2200) CALC GLOBULIN (test 2.6 G/DL 1.9-3.7 code = 2240) CALC A/G RATIO (test 1.8 RATIO 1.0-2.6 code = 2234) BILIRUBIN, TOTAL 0.4 MG/DL See_Comment [Automated message] (test code = 2207) The syste m which generated this result transmit alondra reference range : <=1.2. The refe rence range was not u sed to interpret th is result as normal/abnormal . ALKALINE PHOSPHATASE 106 U/L 40-123 (test code = 2204) AST (test code = 15 U/L 9-50 2217) ALT (test code = 27 U/L 50 2218) LIPID [id number] 01:35:20 Test Item Value Reference Range Interpretation Comments CHOLESTEROL (test 161 MG/DL <200 code = 2210) TRIGLYCERIDES (test 113 MG/DL <150 code = 2232) HDL CHOLESTEROL (test 47 MG/DL >39 code = 2220) CALC LDL CHOL (test 93 MG/DL <100 NOTE: C ALCULATED LDL code = 2237) IS BASED ON MATEUS-HINSON METHOD WHICHINCLUDES ADJUSTABLE TRIGLYCERIDE:VL DL CHOLESTEROL RAT IO.THIS FACTOR VARIES B Y MEASURED TRIGLY CERIDE AND NON-HDLCHOL ESTEROL CONCENTRATIONS WITH INCREASED CALCU LATED LDL SEENIN HIGH ER TRIGLYCERIDE OR LOWER NON-HDL SPECIME NS. FOR MOREINFORMATION , SEE CLIENT ANNOUNCE MENT AT [email or web address] RATIO LDL/HDL 1.98 RATIO <3.55 (test code = 2238) LIPID [id number] 00:00:00 Test Item Value Reference Range Interpretation Comments CHOLESTEROL (test code = 2210) 161 MG/DL TRIGLYCERIDES (test code = 2232) 113 MG/DL HDL CHOLESTEROL (test code = 2220) 47 MG/DL CALC LDL CHOL (test code = 2237) 93 MG/DL RISK RATIO LDL/HDL (test code = 1.98 RATIO 2238) COMPREHENSIVE METABOLIC [id number] 00:00:00 Test Item Value Reference Range Interpretation Comments GLUCOSE (test code = 2217) 139 MG/DL BUN (test code = 2208) 26 MG/DL CREATININE (test code = 2214) 0.87 MG/DL eGFR (2020 CKD-EPI) (test code 96 ML/MIN/1.73 = 73387) CALC BUN/CREAT (test code = 30 RATIO 2235) SODIUM (test code = 2231) 140 MEQ/L POTASSIUM (test code = 2228) 5.1 MEQ/L CHLORIDE (test code = 2215) 100 MEQ/L CARBON DIOXIDE (test code = 25 MEQ/L 2205) CALCIUM (test code = 2209) 10.3 MG/DL PROTEIN, TOTAL (test code = 7.4 G/DL 2228) ALBUMIN (test code = 220) 4.8 G/DL CALC GLOBULIN (test code = 2.6 G/DL 2240) CALC A/G RATIO (test code = 1.8 RATIO 2234) BILIRUBIN, TOTAL (test code = 0.4 MG/DL 2206) ALKALINE PHOSPHATASE (test 106 U/L code = 2204) AST (test code = 2218) 15 U/L ALT (test code = 2219) 27 U/L COMPREHENSIVE METABOLIC [id number] 00:00:00 Test Item Value Reference Range Interpretation Comments GLUCOSE (test code = 2217) 139 MG/DL BUN (test code = 2208) 26 MG/DL CREATININE (test code = 2214) 0.87 MG/DL eGFR (2020 CKD-EPI) (test code 96 ML/MIN/1.73 = 85122) CALC BUN/CREAT (test code = 30 RATIO 2235) SODIUM (test code = 2231) 140 MEQ/L POTASSIUM (test code = 2228) 5.1 MEQ/L CHLORIDE (test code = 2215) 100 MEQ/L CARBON DIOXIDE (test code = 25 MEQ/L 2205) CALCIUM (test code = 2209) 10.3 MG/DL PROTEIN, TOTAL (test code = 7.4 G/DL 2228) ALBUMIN (test code = 2201) 4.8 G/DL CALC GLOBULIN (test code = 2.6 G/DL 0) CALC A/G RATIO (test code = 1.8 RATIO 2234) BILIRUBIN, TOTAL (test code = 0.4 MG/DL 2206) ALKALINE PHOSPHATASE (test 106 U/L code = 2204) AST (test code = 2218) 15 U/L ALT (test code = 2219) 27 U/L LIPID [id number] 00:00:00 Test Item Value Reference Range Interpretation Comments CHOLESTEROL (test code = 2210) 161 MG/DL TRIGLYCERIDES (test code = 2232) 113 MG/DL HDL CHOLESTEROL (test code = 2220) 47 MG/DL CALC LDL CHOL (test code = 2237) 93 MG/DL RISK RATIO LDL/HDL (test code = 1.98 RATIO 2238) HEMOGLOBIN [id number] 04:22:03 Test Item Value Reference Range Interpretation Comments HEMOGLOBIN A1c (test 8.3 % 4.2-5.6 H AMER[employer] AN DIABETES code = 03056) ASSOCIATION IDELINES FOR HGB A1C: PREDIABETES/INC REASED RISK . . . . . . . 5.7 -6.4% DIAGNOSIS OF DI ABETES . . . . . . . . . >=6 .5% WITH CONFIRMATION OR APPROPRIATE SYMPTOMS NOTE: ASSAY MAY BE AFFECTED BY HEMOGLOBINOPATH IES (SICKLE CELL ANEMIA, S- C DISEASE, OTHERS) OR HERMINIA FICIALLY LOWERED BY DECR EASED RED CELL SURVIVAL ( HEMOLYTIC ANEMIAS, BLOOD LOSS, ETC.). CONSIDER ALTERN ATE TESTING OR LABORATORY C ONSULTATION. UNLESS OTHERWIS E INDICATED, ALL TESTING PER [facility] [place], [place] [address] [place] [address] LABORATORY DIRE CTOR: JOSE LUIS MACIEL M.D. CLIA NUMBER [id number] [place]. [id number] HEMOGLOBIN [id number] 00:00:00 Test Item Value Reference Range Interpretation Comments HEMOGLOBIN A1c (test code = 93695) 8.3 % HEMOGLOBIN [id number] 00:00:00 Test Item Value Reference Range Interpretation Comments HEMOGLOBIN A1c (test code = 79857) 8.3 % HEMOGLOBIN [id number] 00:00:00 Test Item Value Reference Range Interpretation Comments HEMOGLOBIN A1c (test code = 82502) 8.3 % HEMOGLOBIN [id number] 09:35:18 Test Item Value Reference Range Interpretation Comments HEMOGLOBIN A1c (test 9.3 % 4.2-5.6 H AMERI CAN DIABETES code = 18838) ASSOCIATION IDELINES FOR HGB A1C: PREDIABETES/INC REASED RISK . . . . . . . 5.7 -6.4% DIAGNOSIS OF DI ABETES . . . . . . . . . >=6 .5% WITH CONFIRMATION OR APPROPRIATE SYMPTOMS NOTE: ASSAY MAY BE AFFECTED BY HEMOGLOBINOPATH IES (SICKLE CELL ANEMIA, S- C DISEASE, OTHERS) OR HERMINIA FICIALLY LOWERED BY DECR EASED RED CELL SURVIVAL ( HEMOLYTIC ANEMIAS, BLOOD LOSS, ETC.). CONSIDER ALTERN ATE TESTING OR LABORATORY C ONSULTATION. UNLESS OTHERWIS E INDICATED, ALL TESTING PER FORMED [facility] [place], [place] [id number] LABORATORY DIRE CTOR: JOSE LUIS MACIEL M.D. CLIA NUMBER [id number] [place]. [id number] CBC W/AUTO DIFF WITH [id number] 09:11:51 Test Item Value Reference Range Interpretation Comments WBC (test code = 6.9 K/UL 3.5-11.0 1001) RBC (test code = 4.39 M/UL 4.50-6.10 L 1002) HEMOGLOBIN (test code 13.4 G/DL 13.5-17.0 L = 1003) HEMATOCRIT (test code 37.7 % 40.0-51.0 L = 1004) MCV (test code = 85.9 fL 80.0-99.0 1005) MCH (test code = 30.5 PG 25.0-33.0 1006) MCHC (test code = 35.5 G/DL 31.0-36.0 1007) RDW (test code = 12.4 % 11.5-15.0 1038) NEUTROPHILS (test 64.8 % code = 1008) LYMPHOCYTES (test 17.2 % code = 1010) MONOCYTES (test code 9.6 % = 1011) EOSINOPHILS (test 7.1 % code = 1012) BASOPHILS (test code 1.2 % = 1013) IMMATURE GRANULOCYTES 0.1 % (test code = 1036) NUCLEATED RBCS (test 0.0 /100 WBC'S See_Comment [Aut omated code = 1065) message] The sy stem which generated this result transmitted reference range : 0.0. The refere nce range was not u sed to interpret th is result as normal/abnormal . PLATELET COUNT (test 318 K/UL 130-400 code = 1015) ABSOLUTE NEUTROPHILS 4.45 K/UL 1.50-7.50 (test code = 1066) ABSOLUTE LYMPHOCYTES 1.18 K/UL 1.00-4.00 (test code = 1067) ABSOLUTE MONOCYTES 0.66 K/UL 0.20-1.00 (test code = 1068) ABSOLUTE EOSINOPHILS 0.49 K/UL 0.00-0.50 (test code = 1040) ABSOLUTE BASOPHILS 0.08 K/UL 0.00-0.20 (test code = 1069) ABS IMMATURE 0.01 K/UL 0.00-0.10 GRANULOCYTES (test code = 1020) ABS NUCLEATED RBCS 0.00 K/UL 0.00-0.11 (test code = 71484) COMPREHENSIVE METABOLIC [id number] 04:19:55 Test Item Value Reference Range Interpretation Comments GLUCOSE (test code = 220 MG/DL 70-99 H 2216) BUN (test code = 29 MG/DL 8-23 H 2207) CREATININE (test 0.79 MG/DL 0.80-1.40 L code = 2213) eGFR (2020 CKD-EPI) 99 ML/MIN/1.73 >60 (test code = 66160) CALC BUN/CREAT (test 37 RATIO 6-28 H code = 2234) SODIUM (test code = 137 MEQ/L 869-994 0168) POTASSIUM (test code 4.5 MEQ/L 3.5-5.4 = 2227) CHLORIDE (test code 99 MEQ/L 95-107 = 2214) CARBON DIOXIDE (test 24 MEQ/L 19-31 code = 2205) CALCIUM (test code = 9.9 MG/DL 8.5-10.5 2208) PROTEIN, TOTAL (test 7.5 G/DL 6.1-8.3 code = 2228) ALBUMIN (test code = 4.6 G/DL 3.5-5.2 2200) CALC GLOBULIN (test 2.9 G/DL 1.9-3.7 code = 2239) CALC A/G RATIO (test 1.6 RATIO 1.0-2.6 code = 2233) BILIRUBIN, TOTAL 0.6 MG/DL See_Comment [Automated message] (test code = 2206) The syste m which generated this result transmit alondra reference range : <=1.2. The refe rence range was not u sed to interpret th is result as normal/abnormal . ALKALINE PHOSPHATASE 105 U/L 40-123 (test code = 2203) AST (test code = 16 U/L 9-50 2217) ALT (test code = 22 U/L 5-50 2218) LIPID [id number] 04:19:55 Test Item Value Reference Range Interpretation Comments CHOLESTEROL (test 199 MG/DL <200 code = 2210) TRIGLYCERIDES (test 79 MG/DL <150 code = 2232) HDL CHOLESTEROL (test 60 MG/DL >39 code = 222) CALC LDL CHOL (test 121 MG/DL <100 H NOTE: C ALCULATED LDL code = 2237) IS BASED ON MATEUS-HINSON METHOD WHICHINCLUDES ADJUSTABLE TRIGLYCERIDE:VL DL CHOLESTEROL RAT IO.THIS FACTOR VARIES B Y MEASURED TRIGLY CERIDE AND NON-HDLCHOL ESTEROL CONCENTRATIONS WITH INCREASED CALCU LATED LDL SEENIN HIGH ER TRIGLYCERIDE OR LOWER NON-HDL SPECIME NS. FOR MOREINFORMATION , SEE CLIENT ANNOUNCE MENT AT [email or web address] [email or web address] RATIO LDL/HDL 2.02 RATIO <3.55 (test code = 2238) COMPREHENSIVE METABOLIC [id number] 00:00:00 Test Item Value Reference Range Interpretation Comments GLUCOSE (test code = 2217) 220 MG/DL BUN (test code = 2208) 29 MG/DL CREATININE (test code = 2214) 0.79 MG/DL eGFR (2020 CKD-EPI) (test code 99 ML/MIN/1.73 = 75894) CALC BUN/CREAT (test code = 37 RATIO 2234) SODIUM (test code = 2231) 137 MEQ/L POTASSIUM (test code = 2228) 4.5 MEQ/L CHLORIDE (test code = 2215) 99 MEQ/L CARBON DIOXIDE (test code = 24 MEQ/L 2205) CALCIUM (test code = 2209) 9.9 MG/DL PROTEIN, TOTAL (test code = 7.5 G/DL 2228) ALBUMIN (test code = 2201) 4.6 G/DL CALC GLOBULIN (test code = 2.9 G/DL 2239) CALC A/G RATIO (test code = 1.6 RATIO 2233) BILIRUBIN, TOTAL (test code = 0.6 MG/DL 2206) ALKALINE PHOSPHATASE (test 105 U/L code = 2204) AST (test code = 2218) 16 U/L ALT (test code = 2219) 22 U/L LIPID [id number] 00:00:00 Test Item Value Reference Range Interpretation Comments CHOLESTEROL (test code = 2210) 199 MG/DL TRIGLYCERIDES (test code = 2232) 79 MG/DL HDL CHOLESTEROL (test code = 2220) 60 MG/DL CALC LDL CHOL (test code = 2237) 121 MG/DL RISK RATIO LDL/HDL (test code = 2.02 RATIO 8) LIPID [id number] 00:00:00 Test Item Value Reference Range Interpretation Comments CHOLESTEROL (test code = 2210) 199 MG/DL TRIGLYCERIDES (test code = 2232) 79 MG/DL HDL CHOLESTEROL (test code = 2220) 60 MG/DL CALC LDL CHOL (test code = 2237) 121 MG/DL RISK RATIO LDL/HDL (test code = 2.02 RATIO 2238) HEMOGLOBIN [id number] 00:00:00 Test Item Value Reference Range Interpretation Comments HEMOGLOBIN A1c (test code = 32919) 9.3 % HEMOGLOBIN [id number] 00:00:00 Test Item Value Reference Range Interpretation Comments HEMOGLOBIN A1c (test code = 96181) 9.3 % HEMOGLOBIN [id number] 00:00:00 Test Item Value Reference Range Interpretation Comments HEMOGLOBIN A1c (test code = 66258) 9.3 % CBC W/AUTO [id number] 00:00:00 Test Item Value Reference Range Interpretation Comments WBC (test code = 1001) 6.9 K/UL RBC (test code = 1002) 4.39 M/UL HEMOGLOBIN (test code = 1003) 13.4 G/DL HEMATOCRIT (test code = 1004) 37.7 % MCV (test code = 1005) 85.9 fL MCH (test code = 1006) 30.5 PG MCHC (test code = 1007) 35.5 G/DL RDW (test code = 1038) 12.4 % NEUTROPHILS (test code = 1008) 64.8 % LYMPHOCYTES (test code = 1010) 17.2 % MONOCYTES (test code = 1011) 9.6 % EOSINOPHILS (test code = 1012) 7.1 % BASOPHILS (test code = 1013) 1.2 % IMMATURE GRANULOCYTES (test 0.1 % code = 1036) NUCLEATED RBCS (test code = 0.0 /100WBC'S 1065) PLATELET COUNT (test code = 318 K/UL 1015) ABSOLUTE NEUTROPHILS (test code 4.45 K/UL = 1066) ABSOLUTE LYMPHOCYTES (test code 1.18 K/UL = 1067) ABSOLUTE MONOCYTES (test code = 0.66 K/UL 1068) ABSOLUTE EOSINOPHILS (test code 0.49 K/UL = 1040) ABSOLUTE BASOPHILS (test code = 0.08 K/UL 1069) ABS IMMATURE GRANULOCYTES (test 0.01 K/UL code = 1020) ABS NUCLEATED RBCS (test code = 0.00 K/UL 09896) CBC W/AUTO [id number] 00:00:00 Test Item Value Reference Range Interpretation Comments WBC (test code = 1001) 6.9 K/UL RBC (test code = 1002) 4.39 M/UL HEMOGLOBIN (test code = 1003) 13.4 G/DL HEMATOCRIT (test code = 1004) 37.7 % MCV (test code = 1005) 85.9 fL MCH (test code = 1006) 30.5 PG MCHC (test code = 1007) 35.5 G/DL RDW (test code = 1038) 12.4 % NEUTROPHILS (test code = 1008) 64.8 % LYMPHOCYTES (test code = 1010) 17.2 % MONOCYTES (test code = 1011) 9.6 % EOSINOPHILS (test code = 1012) 7.1 % BASOPHILS (test code = 1013) 1.2 % IMMATURE GRANULOCYTES (test 0.1 % code = 1036) NUCLEATED RBCS (test code = 0.0 /100WBC'S 1065) PLATELET COUNT (test code = 318 K/UL 1015) ABSOLUTE NEUTROPHILS (test code 4.45 K/UL = 1066) ABSOLUTE LYMPHOCYTES (test code 1.18 K/UL = 1067) ABSOLUTE MONOCYTES (test code = 0.66 K/UL 1068) ABSOLUTE EOSINOPHILS (test code 0.49 K/UL = 1040) ABSOLUTE BASOPHILS (test code = 0.08 K/UL 1069) ABS IMMATURE GRANULOCYTES (test 0.01 K/UL code = 1020) ABS NUCLEATED RBCS (test code = 0.00 K/UL 85181) CBC W/AUTO [id number] 00:00:00 Test Item Value Reference Range Interpretation Comments WBC (test code = 1001) 6.9 K/UL RBC (test code = 1002) 4.39 M/UL HEMOGLOBIN (test code = 1003) 13.4 G/DL HEMATOCRIT (test code = 1004) 37.7 % MCV (test code = 1005) 85.9 fL MCH (test code = 1006) 30.5 PG MCHC (test code = 1007) 35.5 G/DL RDW (test code = 1038) 12.4 % NEUTROPHILS (test code = 1008) 64.8 % LYMPHOCYTES (test code = 1010) 17.2 % MONOCYTES (test code = 1011) 9.6 % EOSINOPHILS (test code = 1012) 7.1 % BASOPHILS (test code = 1013) 1.2 % IMMATURE GRANULOCYTES (test 0.1 % code = 1036) NUCLEATED RBCS (test code = 0.0 /100WBC'S 1065) PLATELET COUNT (test code = 318 K/UL 1015) ABSOLUTE NEUTROPHILS (test code 4.45 K/UL = 1066) ABSOLUTE LYMPHOCYTES (test code 1.18 K/UL = 1067) ABSOLUTE MONOCYTES (test code = 0.66 K/UL 1068) ABSOLUTE EOSINOPHILS (test code 0.49 K/UL = 1040) ABSOLUTE BASOPHILS (test code = 0.08 K/UL 1069) ABS IMMATURE GRANULOCYTES (test 0.01 K/UL code = 1020) ABS NUCLEATED RBCS (test code = 0.00 K/UL 79744) COMPREHENSIVE METABOLIC [id number] 00:00:00 Test Item Value Reference Range Interpretation Comments GLUCOSE (test code = 2217) 220 MG/DL BUN (test code = 2208) 29 MG/DL CREATININE (test code = 2214) 0.79 MG/DL eGFR (2020 CKD-EPI) (test code 99 ML/MIN/1.73 = 47894) CALC BUN/CREAT (test code = 37 RATIO 2235) SODIUM (test code = 2231) 137 MEQ/L POTASSIUM (test code = 2228) 4.5 MEQ/L CHLORIDE (test code = 2215) 99 MEQ/L CARBON DIOXIDE (test code = 24 MEQ/L 2205) CALCIUM (test code = 2209) 9.9 MG/DL PROTEIN, TOTAL (test code = 7.5 G/DL 2228) ALBUMIN (test code = 2201) 4.6 G/DL CALC GLOBULIN (test code = 2.9 G/DL 2240) CALC A/G RATIO (test code = 1.6 RATIO 2233) BILIRUBIN, TOTAL (test code = 0.6 MG/DL 2206) ALKALINE PHOSPHATASE (test 105 U/L code = 2204) AST (test code = 2218) 16 U/L ALT (test code = 2219) 22 U/L HEMOGLOBIN [id number] 00:00:00 Test Item Value Reference Range Interpretation Comments HEMOGLOBIN A1c (test code = 90071) 8.6 % HEMOGLOBIN [id number] 00:00:00 Test Item Value Reference Range Interpretation Comments HEMOGLOBIN A1c (test code = 93438) 8.6 % HEMOGLOBIN [id number] 00:00:00 Test Item Value Reference Range Interpretation Comments HEMOGLOBIN A1c (test code = 05895) 8.6 % LIPID [id number] 00:00:00 Test Item Value Reference Range Interpretation Comments CHOLESTEROL (test code = 2210) 206 MG/DL TRIGLYCERIDES (test code = 2232) 65 MG/DL HDL CHOLESTEROL (test code = 2220) 70 MG/DL CALC LDL CHOL (test code = 2237) 120 MG/DL RISK RATIO LDL/HDL (test code = 1.71 RATIO 2238) LIPID [id number] 00:00:00 Test Item Value Reference Range Interpretation Comments CHOLESTEROL (test code = 2210) 206 MG/DL TRIGLYCERIDES (test code = 2232) 65 MG/DL HDL CHOLESTEROL (test code = 2220) 70 MG/DL CALC LDL CHOL (test code = 2237) 120 MG/DL RISK RATIO LDL/HDL (test code = 1.71 RATIO 2238) COMPREHENSIVE METABOLIC [id number] 00:00:00 Test Item Value Reference Range Interpretation Comments GLUCOSE (test code = 2217) 163 MG/DL BUN (test code = 2208) 26 MG/DL CREATININE (test code = 2214) 0.82 MG/DL eGFR AMER. (test code 108 ML/MIN/1.73 = 08685) eGFR NON- AMER. (test 93 ML/MIN/1.73 code = 61119) CALC BUN/CREAT (test code = 32 RATIO 2235) SODIUM (test code = 2231) 141 MEQ/L POTASSIUM (test code = 2228) 4.3 MEQ/L CHLORIDE (test code = 2215) 103 MEQ/L CARBON DIOXIDE (test code = 23 MEQ/L 2205) CALCIUM (test code = 2209) 9.7 MG/DL PROTEIN, TOTAL (test code = 7.2 G/DL 2228) ALBUMIN (test code = 2201) 4.7 G/DL CALC GLOBULIN (test code = 2.5 G/DL 0) CALC A/G RATIO (test code = 1.9 RATIO 2234) BILIRUBIN, TOTAL (test code = 0.8 MG/DL 2206) ALKALINE PHOSPHATASE (test 97 U/L code = 2204) AST (test code = 2218) 25 U/L ALT (test code = 2219) 41 U/L COMPREHENSIVE METABOLIC [id number] 00:00:00 Test Item Value Reference Range Interpretation Comments GLUCOSE (test code = 2217) 163 MG/DL BUN (test code = 2208) 26 MG/DL CREATININE (test code = 2214) 0.82 MG/DL eGFR AMER. (test code 108 ML/MIN/1.73 = 84601) eGFR NON- AMER. (test 93 ML/MIN/1.73 code = 19787) CALC BUN/CREAT (test code = 32 RATIO 2235) SODIUM (test code = 2231) 141 MEQ/L POTASSIUM (test code = 2228) 4.3 MEQ/L CHLORIDE (test code = 2215) 103 MEQ/L CARBON DIOXIDE (test code = 23 MEQ/L 2205) CALCIUM (test code = 2209) 9.7 MG/DL PROTEIN, TOTAL (test code = 7.2 G/DL 2228) ALBUMIN (test code = 220) 4.7 G/DL CALC GLOBULIN (test code = 2.5 G/DL 2239) CALC A/G RATIO (test code = 1.9 RATIO 2233) BILIRUBIN, TOTAL (test code = 0.8 MG/DL 2206) ALKALINE PHOSPHATASE (test 97 U/L code = 2204) AST (test code = 2218) 25 U/L ALT (test code = 2219) 41 U/L ALBUMIN/CREATININE RATIO, URINE, RANDOM [ADDED][id number] 00:00:00 Test Item Value Reference Range Interpretation Comments CREATININE, URINE, CONC. (test 173.1 MG/DL code = 2072) ALBUMIN, URINE, RANDOM (test code 16.3 MG/DL = 18750) CALC ALBUMIN/CREAT, RND (test 94 MG/G code = 51610) ALBUMIN/CREATININE RATIO, URINE, RANDOM [ADDED]2021-08-06 00:00:00 Test Item Value Reference Range Interpretation Comments CREATININE, URINE, CONC. (test 173.1 MG/DL code = 2072) ALBUMIN, URINE, RANDOM (test code 16.3 MG/DL = 43187) CALC ALBUMIN/CREAT, RND (test 94 MG/G code = 42079) CBC W/AUTO [id number] 00:00:00 Test Item Value Reference Range Interpretation Comments WBC (test code = 1001) 6.0 K/UL RBC (test code = 1002) 4.30 M/UL HEMOGLOBIN (test code = 1003) 13.4 G/DL HEMATOCRIT (test code = 1004) 37.9 % MCV (test code = 1005) 88.1 fL MCH (test code = 1006) 31.2 PG MCHC (test code = 1007) 35.4 G/DL RDW (test code = 1038) 13.0 % NEUTROPHILS (test code = 1008) 61.1 % LYMPHOCYTES (test code = 1010) 18.0 % MONOCYTES (test code = 1011) 10.3 % EOSINOPHILS (test code = 1012) 9.0 % BASOPHILS (test code = 1013) 1.3 % IMMATURE GRANULOCYTES (test 0.3 % code = 1036) NUCLEATED RBCS (test code = 0.0 /100WBC'S 1065) PLATELET COUNT (test code = 308 K/UL 1015) ABSOLUTE NEUTROPHILS (test code 3.67 K/UL = 1066) ABSOLUTE LYMPHOCYTES (test code 1.08 K/UL = 1067) ABSOLUTE MONOCYTES (test code = 0.62 K/UL 1068) ABSOLUTE EOSINOPHILS (test code 0.54 K/UL = 1040) ABSOLUTE BASOPHILS (test code = 0.08 K/UL 1069) ABS IMMATURE GRANULOCYTES (test 0.02 K/UL code = 1020) ABS NUCLEATED RBCS (test code = 0.00 K/UL 86875) CBC W/AUTO [id number] 00:00:00 Test Item Value Reference Range Interpretation Comments WBC (test code = 1001) 6.0 K/UL RBC (test code = 1002) 4.30 M/UL HEMOGLOBIN (test code = 1003) 13.4 G/DL HEMATOCRIT (test code = 1004) 37.9 % MCV (test code = 1005) 88.1 fL MCH (test code = 1006) 31.2 PG MCHC (test code = 1007) 35.4 G/DL RDW (test code = 1038) 13.0 % NEUTROPHILS (test code = 1008) 61.1 % LYMPHOCYTES (test code = 1010) 18.0 % MONOCYTES (test code = 1011) 10.3 % EOSINOPHILS (test code = 1012) 9.0 % BASOPHILS (test code = 1013) 1.3 % IMMATURE GRANULOCYTES (test 0.3 % code = 1036) NUCLEATED RBCS (test code = 0.0 /100WBC'S 1065) PLATELET COUNT (test code = 308 K/UL 1015) ABSOLUTE NEUTROPHILS (test code 3.67 K/UL = 1066) ABSOLUTE LYMPHOCYTES (test code 1.08 K/UL = 1067) ABSOLUTE MONOCYTES (test code = 0.62 K/UL 1068) ABSOLUTE EOSINOPHILS (test code 0.54 K/UL = 1040) ABSOLUTE BASOPHILS (test code = 0.08 K/UL 1069) ABS IMMATURE GRANULOCYTES (test 0.02 K/UL code = 1020) ABS NUCLEATED RBCS (test code = 0.00 K/UL 58630) CBC W/AUTO [id number] 00:00:00 Test Item Value Reference Range Interpretation Comments WBC (test code = 1001) 6.0 K/UL RBC (test code = 1002) 4.30 M/UL HEMOGLOBIN (test code = 1003) 13.4 G/DL HEMATOCRIT (test code = 1004) 37.9 % MCV (test code = 1005) 88.1 fL MCH (test code = 1006) 31.2 PG MCHC (test code = 1007) 35.4 G/DL RDW (test code = 1038) 13.0 % NEUTROPHILS (test code = 1008) 61.1 % LYMPHOCYTES (test code = 1010) 18.0 % MONOCYTES (test code = 1011) 10.3 % EOSINOPHILS (test code = 1012) 9.0 % BASOPHILS (test code = 1013) 1.3 % IMMATURE GRANULOCYTES (test 0.3 % code = 1036) NUCLEATED RBCS (test code = 0.0 /100WBC'S 1065) PLATELET COUNT (test code = 308 K/UL 1015) ABSOLUTE NEUTROPHILS (test code 3.67 K/UL = 1066) ABSOLUTE LYMPHOCYTES (test code 1.08 K/UL = 1067) ABSOLUTE MONOCYTES (test code = 0.62 K/UL 1068) ABSOLUTE EOSINOPHILS (test code 0.54 K/UL = 1040) ABSOLUTE BASOPHILS (test code = 0.08 K/UL 1069) ABS IMMATURE GRANULOCYTES (test 0.02 K/UL code = 1020) ABS NUCLEATED RBCS (test code = 0.00 K/UL 57286) MICROALBUMIN/CREATININE, RANDOM AND [id number] 00:00:00 Test Item Value Reference Range Interpretation Comments CREATININE, URINE, CONC. (test 93.8 MG/DL code = 2072) ALBUMIN, URINE, RANDOM (test code 5.6 MG/DL = 28802) CALC ALBUMIN/CREAT, RND (test code 60 MG/G = 57017) MICROALBUMIN/CREATININE, RANDOM AND [id number] 00:00:00 Test Item Value Reference Range Interpretation Comments CREATININE, URINE, CONC. (test 93.8 MG/DL code = 207) ALBUMIN, URINE, RANDOM (test code 5.6 MG/DL = 58646) CALC ALBUMIN/CREAT, RND (test code 60 MG/G = 90206) LIPID [id number] 00:00:00 Test Item Value Reference Range Interpretation Comments CHOLESTEROL (test code = 2210) 144 MG/DL TRIGLYCERIDES (test code = 2232) 54 MG/DL HDL CHOLESTEROL (test code = 2220) 63 MG/DL CALC LDL CHOL (test code = 2237) 68 MG/DL RISK RATIO LDL/HDL (test code = 1.08 RATIO 2238) LIPID [id number] 00:00:00 Test Item Value Reference Range Interpretation Comments CHOLESTEROL (test code = 2210) 144 MG/DL TRIGLYCERIDES (test code = 2232) 54 MG/DL HDL CHOLESTEROL (test code = 2220) 63 MG/DL CALC LDL CHOL (test code = 2237) 68 MG/DL RISK RATIO LDL/HDL (test code = 1.08 RATIO 2238) COMPREHENSIVE METABOLIC [id number] 00:00:00 Test Item Value Reference Range Interpretation Comments GLUCOSE (test code = 2217) 247 MG/DL BUN (test code = 2208) 23 MG/DL CREATININE (test code = 2214) 0.89 MG/DL eGFR AMER. (test code 105 ML/MIN/1.73 = 57773) eGFR NON- AMER. (test 90 ML/MIN/1.73 code = 73434) CALC BUN/CREAT (test code = 26 RATIO 2235) SODIUM (test code = 2231) 137 MEQ/L POTASSIUM (test code = 2228) 4.2 MEQ/L CHLORIDE (test code = 2215) 99 MEQ/L CARBON DIOXIDE (test code = 25 MEQ/L 2205) CALCIUM (test code = 2209) 9.3 MG/DL PROTEIN, TOTAL (test code = 7.1 G/DL 2228) ALBUMIN (test code = 2201) 4.6 G/DL CALC GLOBULIN (test code = 2.5 G/DL 2240) CALC A/G RATIO (test code = 1.8 RATIO 2234) BILIRUBIN, TOTAL (test code = 0.6 MG/DL 2206) ALKALINE PHOSPHATASE (test 104 U/L code = 2204) AST (test code = 2218) 19 U/L ALT (test code = 2219) 21 U/L COMPREHENSIVE METABOLIC [id number] 00:00:00 Test Item Value Reference Range Interpretation Comments GLUCOSE (test code = 2217) 247 MG/DL BUN (test code = 2208) 23 MG/DL CREATININE (test code = 2214) 0.89 MG/DL eGFR AMER. (test code 105 ML/MIN/1.73 = 40445) eGFR NON- AMER. (test 90 ML/MIN/1.73 code = 10896) CALC BUN/CREAT (test code = 26 RATIO 2235) SODIUM (test code = 2231) 137 MEQ/L POTASSIUM (test code = 2228) 4.2 MEQ/L CHLORIDE (test code = 2215) 99 MEQ/L CARBON DIOXIDE (test code = 25 MEQ/L 2205) CALCIUM (test code = 2209) 9.3 MG/DL PROTEIN, TOTAL (test code = 7.1 G/DL 2228) ALBUMIN (test code = 2201) 4.6 G/DL CALC GLOBULIN (test code = 2.5 G/DL 2240) CALC A/G RATIO (test code = 1.8 RATIO 2234) BILIRUBIN, TOTAL (test code = 0.6 MG/DL 2206) ALKALINE PHOSPHATASE (test 104 U/L code = 2204) AST (test code = 2218) 19 U/L ALT (test code = 2219) 21 U/L HEMOGLOBIN [id number] 00:00:00 Test Item Value Reference Range Interpretation Comments HEMOGLOBIN A1c (test code = 96181) 9.9 % CBC W/AUTO [id number] 00:00:00 Test Item Value Reference Range Interpretation Comments WBC (test code = 1001) 5.7 K/UL RBC (test code = 1002) 4.41 M/UL HEMOGLOBIN (test code = 1003) 12.9 G/DL HEMATOCRIT (test code = 1004) 39.0 % MCV (test code = 1005) 88.4 fL MCH (test code = 1006) 29.3 PG MCHC (test code = 1007) 33.1 G/DL RDW (test code = 1038) 12.3 % NEUTROPHILS (test code = 1008) 66.9 % LYMPHOCYTES (test code = 1010) 14.7 % MONOCYTES (test code = 1011) 10.7 % EOSINOPHILS (test code = 1012) 6.5 % BASOPHILS (test code = 1013) 1.2 % IMMATURE GRANULOCYTES (test code = 0.2 % 1036) PLATELET COUNT (test code = 1015) 322 K/UL CBC W/AUTO [id number] 00:00:00 Test Item Value Reference Range Interpretation Comments WBC (test code = 1001) 5.7 K/UL RBC (test code = 1002) 4.41 M/UL HEMOGLOBIN (test code = 1003) 12.9 G/DL HEMATOCRIT (test code = 1004) 39.0 % MCV (test code = 1005) 88.4 fL MCH (test code = 1006) 29.3 PG MCHC (test code = 1007) 33.1 G/DL RDW (test code = 1038) 12.3 % NEUTROPHILS (test code = 1008) 66.9 % LYMPHOCYTES (test code = 1010) 14.7 % MONOCYTES (test code = 1011) 10.7 % EOSINOPHILS (test code = 1012) 6.5 % BASOPHILS (test code = 1013) 1.2 % IMMATURE GRANULOCYTES (test code = 0.2 % 1036) PLATELET COUNT (test code = 1015) 322 K/UL CBC W/AUTO [id number] 00:00:00 Test Item Value Reference Range Interpretation Comments WBC (test code = 1001) 5.7 K/UL RBC (test code = 1002) 4.41 M/UL HEMOGLOBIN (test code = 1003) 12.9 G/DL HEMATOCRIT (test code = 1004) 39.0 % MCV (test code = 1005) 88.4 fL MCH (test code = 1006) 29.3 PG MCHC (test code = 1007) 33.1 G/DL RDW (test code = 1038) 12.3 % NEUTROPHILS (test code = 1008) 66.9 % LYMPHOCYTES (test code = 1010) 14.7 % MONOCYTES (test code = 1011) 10.7 % EOSINOPHILS (test code = 1012) 6.5 % BASOPHILS (test code = 1013) 1.2 % IMMATURE GRANULOCYTES (test code = 0.2 % 1036) PLATELET COUNT (test code = 1015) 322 K/UL HEMOGLOBIN [id number] 00:00:00 Test Item Value Reference Range Interpretation Comments HEMOGLOBIN A1c (test code = 07678) 9.9 % HEMOGLOBIN [id number] 00:00:00 Test Item Value Reference Range Interpretation Comments HEMOGLOBIN A1c (test code = 05064) 9.9 % COMPREHENSIVE METABOLIC [id number] 00:00:00 Test Item Value Reference Range Interpretation Comments GLUCOSE (test code = 2217) 154 MG/DL BUN (test code = 2208) 24 MG/DL CREATININE (test code = 2214) 0.81 MG/DL eGFR AMER. (test code 110 ML/MIN/1.73 = 06725) eGFR NON- AMER. (test 95 ML/MIN/1.73 code = 97184) CALC BUN/CREAT (test code = 30 RATIO 5) SODIUM (test code = 2231) 138 MEQ/L POTASSIUM (test code = 2228) 4.5 MEQ/L CHLORIDE (test code = 2215) 100 MEQ/L CARBON DIOXIDE (test code = 28 MEQ/L 2205) CALCIUM (test code = 2209) 10.2 MG/DL PROTEIN, TOTAL (test code = 7.5 G/DL 2228) ALBUMIN (test code = 2201) 4.8 G/DL CALC GLOBULIN (test code = 2.7 G/DL 2239) CALC A/G RATIO (test code = 1.8 RATIO 4) BILIRUBIN, TOTAL (test code = 0.7 MG/DL 2206) ALKALINE PHOSPHATASE (test 91 U/L code = 2204) AST (test code = 2218) 21 U/L ALT (test code = 2219) 27 U/L LIPID [id number] 00:00:00 Test Item Value Reference Range Interpretation Comments CHOLESTEROL (test code = 2210) 199 MG/DL TRIGLYCERIDES (test code = 2232) 83 MG/DL HDL CHOLESTEROL (test code = 2220) 69 MG/DL CALC LDL CHOL (test code = 2237) 112 MG/DL RISK RATIO LDL/HDL (test code = 1.62 RATIO 2238) LIPID [id number] 00:00:00 Test Item Value Reference Range Interpretation Comments CHOLESTEROL (test code = 2210) 199 MG/DL TRIGLYCERIDES (test code = 2232) 83 MG/DL HDL CHOLESTEROL (test code = 2220) 69 MG/DL CALC LDL CHOL (test code = 2237) 112 MG/DL RISK RATIO LDL/HDL (test code = 1.62 RATIO 2238) MICROALBUMIN/CREATININE, RANDOM AND [id number] 00:00:00 Test Item Value Reference Range Interpretation Comments CREATININE, URINE, CONC. (test 115.4 MG/DL code = 2072) ALBUMIN, URINE, RANDOM (test code 8.5 MG/DL = 13946) CALC ALBUMIN/CREAT, RND (test 74 MG/G code = 32289) MICROALBUMIN/CREATININE, RANDOM AND [id number] 00:00:00 Test Item Value Reference Range Interpretation Comments CREATININE, URINE, CONC. (test 115.4 MG/DL code = 2072) ALBUMIN, URINE, RANDOM (test code 8.5 MG/DL = 43534) CALC ALBUMIN/CREAT, RND (test 74 MG/G code = 67552) HEMOGLOBIN [id number] 00:00:00 Test Item Value Reference Range Interpretation Comments HEMOGLOBIN A1c (test code = 16336) 6.9 % HEMOGLOBIN [id number] 00:00:00 Test Item Value Reference Range Interpretation Comments HEMOGLOBIN A1c (test code = 57614) 6.9 % HEMOGLOBIN [id number] 00:00:00 Test Item Value Reference Range Interpretation Comments HEMOGLOBIN A1c (test code = 36919) 6.9 % COMPREHENSIVE METABOLIC [id number] 00:00:00 Test Item Value Reference Range Interpretation Comments GLUCOSE (test code = 2217) 154 MG/DL BUN (test code = 2208) 24 MG/DL CREATININE (test code = 2214) 0.81 MG/DL eGFR AMER. (test code 110 ML/MIN/1.73 = 40201) eGFR NON- AMER. (test 95 ML/MIN/1.73 code = 71359) CALC BUN/CREAT (test code = 30 RATIO 2235) SODIUM (test code = 2231) 138 MEQ/L POTASSIUM (test code = 2228) 4.5 MEQ/L CHLORIDE (test code = 2215) 100 MEQ/L CARBON DIOXIDE (test code = 28 MEQ/L 2205) CALCIUM (test code = 2209) 10.2 MG/DL PROTEIN, TOTAL (test code = 7.5 G/DL 2228) ALBUMIN (test code = 2201) 4.8 G/DL CALC GLOBULIN (test code = 2.7 G/DL 2239) CALC A/G RATIO (test code = 1.8 RATIO 2234) BILIRUBIN, TOTAL (test code = 0.7 MG/DL 2206) ALKALINE PHOSPHATASE (test 91 U/L code = 2204) AST (test code = 2218) 21 U/L ALT (test code = 2219) 27 U/L HEMOGLOBIN [id number] 00:00:00 Test Item Value Reference Range Interpretation Comments HEMOGLOBIN A1c (test code = 89430) 6.9 % HEMOGLOBIN [id number] 00:00:00 Test Item Value Reference Range Interpretation Comments HEMOGLOBIN A1c (test code = 35814) 6.9 % LIPID [id number] 00:00:00 Test Item Value Reference Range Interpretation Comments CHOLESTEROL (test code = 2210) 187 MG/DL TRIGLYCERIDES (test code = 2232) 73 MG/DL HDL CHOLESTEROL (test code = 2220) 64 MG/DL CALC LDL CHOL (test code = 2237) 107 MG/DL RISK RATIO LDL/HDL (test code = 1.67 RATIO 2238) LIPID [id number] 00:00:00 Test Item Value Reference Range Interpretation Comments CHOLESTEROL (test code = 2210) 187 MG/DL TRIGLYCERIDES (test code = 2232) 73 MG/DL HDL CHOLESTEROL (test code = 2220) 64 MG/DL CALC LDL CHOL (test code = 2237) 107 MG/DL RISK RATIO LDL/HDL (test code = 1.67 RATIO 2238) COMPREHENSIVE METABOLIC [id number] 00:00:00 Test Item Value Reference Range Interpretation Comments GLUCOSE (test code = 2217) 162 MG/DL BUN (test code = 2208) 23 MG/DL CREATININE (test code = 2214) 0.73 MG/DL eGFR AMER. (test code 114 ML/MIN/1.73 = 66201) eGFR NON- AMER. (test 99 ML/MIN/1.73 code = 49329) CALC BUN/CREAT (test code = 32 RATIO 2235) SODIUM (test code = 2231) 139 MEQ/L POTASSIUM (test code = 2228) 4.5 MEQ/L CHLORIDE (test code = 2215) 101 MEQ/L CARBON DIOXIDE (test code = 23 MEQ/L 2206) CALCIUM (test code = 2209) 9.7 MG/DL PROTEIN, TOTAL (test code = 7.4 G/DL 222) ALBUMIN (test code = 2201) 4.8 G/DL CALC GLOBULIN (test code = 2.6 G/DL 2240) CALC A/G RATIO (test code = 1.8 RATIO 2234) BILIRUBIN, TOTAL (test code = 0.8 MG/DL 220) ALKALINE PHOSPHATASE (test 100 U/L code = 2204) AST (test code = 2218) 16 U/L ALT (test code = 2219) 19 U/L COMPREHENSIVE METABOLIC [id number] 00:00:00 Test Item Value Reference Range Interpretation Comments GLUCOSE (test code = 2217) 162 MG/DL BUN (test code = 2208) 23 MG/DL CREATININE (test code = 2214) 0.73 MG/DL eGFR AMER. (test code 114 ML/MIN/1.73 = 39004) eGFR NON- AMER. (test 99 ML/MIN/1.73 code = 37533) CALC BUN/CREAT (test code = 32 RATIO 2235) SODIUM (test code = 2231) 139 MEQ/L POTASSIUM (test code = 2228) 4.5 MEQ/L CHLORIDE (test code = 2215) 101 MEQ/L CARBON DIOXIDE (test code = 23 MEQ/L 220) CALCIUM (test code = 2209) 9.7 MG/DL PROTEIN, TOTAL (test code = 7.4 G/DL 2229) ALBUMIN (test code = 2201) 4.8 G/DL CALC GLOBULIN (test code = 2.6 G/DL 2240) CALC A/G RATIO (test code = 1.8 RATIO 2234) BILIRUBIN, TOTAL (test code = 0.8 MG/DL 2207) ALKALINE PHOSPHATASE (test 100 U/L code = 2204) AST (test code = 2218) 16 U/L ALT (test code = 2219) 19 U/L [id number] 00:00:00 Test Item Value Reference Range Interpretation Comments TSH, THIRD GENERATION (test code 1.260 UIU/ML = 2821) [id number] 00:00:00 Test Item Value Reference Range Interpretation Comments TSH, THIRD GENERATION (test code 1.260 UIU/ML = 2821) [id number] 00:00:00 Test Item Value Reference Range Interpretation Comments TSH, THIRD GENERATION (test code 1.260 UIU/ML = 2821) MICROALBUMIN/CREATININE, RANDOM AND [id number] 00:00:00 Test Item Value Reference Range Interpretation Comments CREATININE, URINE, CONC. (test 105.2 MG/DL code = 2072) ALBUMIN, URINE, RANDOM (test code 5.4 MG/DL = 18153) CALC ALBUMIN/CREAT, RND (test 51 MG/G code = 93241) MICROALBUMIN/CREATININE, RANDOM AND [id number] 00:00:00 Test Item Value Reference Range Interpretation Comments CREATININE, URINE, CONC. (test 105.2 MG/DL code = 2072) ALBUMIN, URINE, RANDOM (test code 5.4 MG/DL = 01832) CALC ALBUMIN/CREAT, RND (test 51 MG/G code = 36528) CBC W/AUTO [id number] 00:00:00 Test Item Value Reference Range Interpretation Comments WBC (test code = 1001) 5.5 K/UL RBC (test code = 1002) 4.56 M/UL HEMOGLOBIN (test code = 1003) 13.7 G/DL HEMATOCRIT (test code = 1004) 39.9 % MCV (test code = 1005) 87.5 fL MCH (test code = 1006) 30.0 PG MCHC (test code = 1007) 34.3 G/DL RDW (test code = 1038) 13.1 % NEUTROPHILS (test code = 1008) 60.6 % LYMPHOCYTES (test code = 1010) 20.8 % MONOCYTES (test code = 1011) 9.1 % EOSINOPHILS (test code = 1012) 8.2 % BASOPHILS (test code = 1013) 1.3 % PLATELET COUNT (test code = 1015) 321 K/UL CBC W/AUTO [id number] 00:00:00 Test Item Value Reference Range Interpretation Comments WBC (test code = 1001) 5.5 K/UL RBC (test code = 1002) 4.56 M/UL HEMOGLOBIN (test code = 1003) 13.7 G/DL HEMATOCRIT (test code = 1004) 39.9 % MCV (test code = 1005) 87.5 fL MCH (test code = 1006) 30.0 PG MCHC (test code = 1007) 34.3 G/DL RDW (test code = 1038) 13.1 % NEUTROPHILS (test code = 1008) 60.6 % LYMPHOCYTES (test code = 1010) 20.8 % MONOCYTES (test code = 1011) 9.1 % EOSINOPHILS (test code = 1012) 8.2 % BASOPHILS (test code = 1013) 1.3 % PLATELET COUNT (test code = 1015) 321 K/UL CBC W/AUTO [id number] 00:00:00 Test Item Value Reference Range Interpretation Comments WBC (test code = 1001) 5.5 K/UL RBC (test code = 1002) 4.56 M/UL HEMOGLOBIN (test code = 1003) 13.7 G/DL HEMATOCRIT (test code = 1004) 39.9 % MCV (test code = 1005) 87.5 fL MCH (test code = 1006) 30.0 PG MCHC (test code = 1007) 34.3 G/DL RDW (test code = 1038) 13.1 % NEUTROPHILS (test code = 1008) 60.6 % LYMPHOCYTES (test code = 1010) 20.8 % MONOCYTES (test code = 1011) 9.1 % EOSINOPHILS (test code = 1012) 8.2 % BASOPHILS (test code = 1013) 1.3 % PLATELET COUNT (test code = 1015) 321 K/UL HEMOGLOBIN [id number] 00:00:00 Test Item Value Reference Range Interpretation Comments HEMOGLOBIN A1c (test code = 21683) 6.9 % MICROALBUMIN/CREATININE, RANDOM AND [id number] 00:00:00 Test Item Value Reference Range Interpretation Comments CREATININE, URINE, CONC. (test 85.5 MG/DL code = 2072) ALBUMIN, URINE, RANDOM (test code 4.7 MG/DL = 97257) CALC ALBUMIN/CREAT, RND (test code 55 MG/G = 39921) MICROALBUMIN/CREATININE, RANDOM AND [id number] 00:00:00 Test Item Value Reference Range Interpretation Comments CREATININE, URINE, CONC. (test 85.5 MG/DL code = 2072) ALBUMIN, URINE, RANDOM (test code 4.7 MG/DL = 03568) CALC ALBUMIN/CREAT, RND (test code 55 MG/G = 71786) HEMOGLOBIN [id number] 00:00:00 Test Item Value Reference Range Interpretation Comments HEMOGLOBIN A1c (test code = 94156) 7.1 % HEMOGLOBIN [id number] 00:00:00 Test Item Value Reference Range Interpretation Comments HEMOGLOBIN A1c (test code = 94951) 7.1 % COMPREHENSIVE METABOLIC [id number] 00:00:00 Test Item Value Reference Range Interpretation Comments GLUCOSE (test code = 2217) 148 MG/DL BUN (test code = 2208) 23 MG/DL CREATININE (test code = 2214) 0.81 MG/DL eGFR AMER. (test code 110 ML/MIN/1.73 = 91690) eGFR NON- AMER. (test 95 ML/MIN/1.73 code = 15195) CALC BUN/CREAT (test code = 28 RATIO 2235) SODIUM (test code = 2231) 140 MEQ/L POTASSIUM (test code = 2228) 4.9 MEQ/L CHLORIDE (test code = 2215) 97 MEQ/L CARBON DIOXIDE (test code = 27 MEQ/L 2205) CALCIUM (test code = 2209) 10.4 MG/DL PROTEIN, TOTAL (test code = 7.6 G/DL 2228) ALBUMIN (test code = 2201) 5.0 G/DL CALC GLOBULIN (test code = 2.6 G/DL 2240) CALC A/G RATIO (test code = 1.9 RATIO 2233) BILIRUBIN, TOTAL (test code = 0.5 MG/DL 2206) ALKALINE PHOSPHATASE (test 98 U/L code = 2204) AST (test code = 2218) 14 U/L ALT (test code = 2219) 16 U/L COMPREHENSIVE METABOLIC [id number] 00:00:00 Test Item Value Reference Range Interpretation Comments GLUCOSE (test code = 2217) 148 MG/DL BUN (test code = 2208) 23 MG/DL CREATININE (test code = 2214) 0.81 MG/DL eGFR AMER. (test code 110 ML/MIN/1.73 = 76011) eGFR NON- AMER. (test 95 ML/MIN/1.73 code = 90833) CALC BUN/CREAT (test code = 28 RATIO 2235) SODIUM (test code = 2231) 140 MEQ/L POTASSIUM (test code = 2228) 4.9 MEQ/L CHLORIDE (test code = 2215) 97 MEQ/L CARBON DIOXIDE (test code = 27 MEQ/L 220) CALCIUM (test code = 2209) 10.4 MG/DL PROTEIN, TOTAL (test code = 7.6 G/DL 2228) ALBUMIN (test code = 2201) 5.0 G/DL CALC GLOBULIN (test code = 2.6 G/DL 224) CALC A/G RATIO (test code = 1.9 RATIO 2234) BILIRUBIN, TOTAL (test code = 0.5 MG/DL 2206) ALKALINE PHOSPHATASE (test 98 U/L code = 2204) AST (test code = 2218) 14 U/L ALT (test code = 2219) 16 U/L LIPID [id number] 00:00:00 Test Item Value Reference Range Interpretation Comments CHOLESTEROL (test code = 2210) 198 MG/DL TRIGLYCERIDES (test code = 2232) 96 MG/DL HDL CHOLESTEROL (test code = 2220) 59 MG/DL CALC LDL CHOL (test code = 2237) 120 MG/DL RISK RATIO LDL/HDL (test code = 2.03 RATIO 2238) LIPID [id number] 00:00:00 Test Item Value Reference Range Interpretation Comments CHOLESTEROL (test code = 2210) 198 MG/DL TRIGLYCERIDES (test code = 2232) 96 MG/DL HDL CHOLESTEROL (test code = 2220) 59 MG/DL CALC LDL CHOL (test code = 2237) 120 MG/DL RISK RATIO LDL/HDL (test code = 2.03 RATIO 2238) HEMOGLOBIN [id number] 00:00:00 Test Item Value Reference Range Interpretation Comments HEMOGLOBIN A1c (test code = 86836) 7.1 % LIPID [id number] 00:00:00 Test Item Value Reference Range Interpretation Comments CHOLESTEROL (test code = 2210) 197 MG/DL TRIGLYCERIDES (test code = 2232) 72 MG/DL HDL CHOLESTEROL (test code = 2220) 61 MG/DL CALC LDL CHOL (test code = 2237) 122 MG/DL RISK RATIO LDL/HDL (test code = 1.99 RATIO 2238) COMPREHENSIVE METABOLIC [id number] 00:00:00 Test Item Value Reference Range Interpretation Comments GLUCOSE (test code = 2217) 201 MG/DL BUN (test code = 2208) 22 MG/DL CREATININE (test code = 2214) 0.71 MG/DL eGFR AMER. (test code 117 ML/MIN/1.73 = 46380) eGFR NON- AMER. (test 101 ML/MIN/1.73 code = 09953) CALC BUN/CREAT (test code = 31 RATIO 2235) SODIUM (test code = 2231) 140 MEQ/L POTASSIUM (test code = 2228) 4.1 MEQ/L CHLORIDE (test code = 2215) 101 MEQ/L CARBON DIOXIDE (test code = 23 MEQ/L 220) CALCIUM (test code = 2209) 9.9 MG/DL PROTEIN, TOTAL (test code = 7.1 G/DL 2228) ALBUMIN (test code = 2201) 4.7 G/DL CALC GLOBULIN (test code = 2.4 G/DL 224) CALC A/G RATIO (test code = 2.0 RATIO 2234) BILIRUBIN, TOTAL (test code = 0.6 MG/DL 2206) ALKALINE PHOSPHATASE (test 94 U/L code = 2204) AST (test code = 2218) 18 U/L ALT (test code = 2219) 22 U/L COMPREHENSIVE METABOLIC [id number] 00:00:00 Test Item Value Reference Range Interpretation Comments GLUCOSE (test code = 2217) 201 MG/DL BUN (test code = 2208) 22 MG/DL CREATININE (test code = 2214) 0.71 MG/DL eGFR AMER. (test code 117 ML/MIN/1.73 = 39125) eGFR NON- AMER. (test 101 ML/MIN/1.73 code = 35163) CALC BUN/CREAT (test code = 31 RATIO 2235) SODIUM (test code = 2231) 140 MEQ/L POTASSIUM (test code = 2228) 4.1 MEQ/L CHLORIDE (test code = 2215) 101 MEQ/L CARBON DIOXIDE (test code = 23 MEQ/L 220) CALCIUM (test code = 2209) 9.9 MG/DL PROTEIN, TOTAL (test code = 7.1 G/DL 2228) ALBUMIN (test code = 2201) 4.7 G/DL CALC GLOBULIN (test code = 2.4 G/DL 2239) CALC A/G RATIO (test code = 2.0 RATIO 2234) BILIRUBIN, TOTAL (test code = 0.6 MG/DL 2206) ALKALINE PHOSPHATASE (test 94 U/L code = 2204) AST (test code = 2218) 18 U/L ALT (test code = 2219) 22 U/L LIPID [id number] 00:00:00 Test Item Value Reference Range Interpretation Comments CHOLESTEROL (test code = 2210) 197 MG/DL TRIGLYCERIDES (test code = 2232) 72 MG/DL HDL CHOLESTEROL (test code = 2220) 61 MG/DL CALC LDL CHOL (test code = 2237) 122 MG/DL RISK RATIO LDL/HDL (test code = 1.99 RATIO 2238) HEMOGLOBIN [id number] 00:00:00 Test Item Value Reference Range Interpretation Comments HEMOGLOBIN A1c (test code = 88906) 9.1 % HEMOGLOBIN [id number] 00:00:00 Test Item Value Reference Range Interpretation Comments HEMOGLOBIN A1c (test code = 96985) 9.1 % HEMOGLOBIN [id number] 00:00:00 Test Item Value Reference Range Interpretation Comments HEMOGLOBIN A1c (test code = 42992) 9.1 % HEMOGLOBIN [id number] 00:00:00 Test Item Value Reference Range Interpretation Comments HEMOGLOBIN A1c (test code = 78366) 8.1 % LIPID [id number] 00:00:00 Test Item Value Reference Range Interpretation Comments CHOLESTEROL (test code = 2210) 168 MG/DL TRIGLYCERIDES (test code = 2232) 76 MG/DL HDL CHOLESTEROL (test code = 2220) 56 MG/DL CALC LDL CHOL (test code = 2237) 97 MG/DL RISK RATIO LDL/HDL (test code = 1.73 RATIO 2238) LIPID [id number] 00:00:00 Test Item Value Reference Range Interpretation Comments CHOLESTEROL (test code = 2210) 168 MG/DL TRIGLYCERIDES (test code = 2232) 76 MG/DL HDL CHOLESTEROL (test code = 2220) 56 MG/DL CALC LDL CHOL (test code = 2237) 97 MG/DL RISK RATIO LDL/HDL (test code = 1.73 RATIO 2238) COMPREHENSIVE METABOLIC [id number] 00:00:00 Test Item Value Reference Range Interpretation Comments GLUCOSE (test code = 2217) 187 MG/DL BUN (test code = 2208) 22 MG/DL CREATININE (test code = 2214) 0.68 MG/DL eGFR AMER. (test code 119 ML/MIN/1.73 = 20305) eGFR NON- AMER. (test 103 ML/MIN/1.73 code = 62201) CALC BUN/CREAT (test code = 32 RATIO 2235) SODIUM (test code = 2231) 139 MEQ/L POTASSIUM (test code = 2228) 4.3 MEQ/L CHLORIDE (test code = 2215) 99 MEQ/L CARBON DIOXIDE (test code = 24 MEQ/L 220) CALCIUM (test code = 2209) 9.4 MG/DL PROTEIN, TOTAL (test code = 6.8 G/DL 2228) ALBUMIN (test code = 2201) 4.2 G/DL CALC GLOBULIN (test code = 2.6 G/DL 2240) CALC A/G RATIO (test code = 1.6 RATIO 2234) BILIRUBIN, TOTAL (test code = 0.3 MG/DL 2206) ALKALINE PHOSPHATASE (test 82 U/L code = 2204) AST (test code = 2218) 14 U/L ALT (test code = 2219) 16 U/L COMPREHENSIVE METABOLIC [id number] 00:00:00 Test Item Value Reference Range Interpretation Comments GLUCOSE (test code = 2217) 187 MG/DL BUN (test code = 2208) 22 MG/DL CREATININE (test code = 2214) 0.68 MG/DL eGFR AMER. (test code 119 ML/MIN/1.73 = 66119) eGFR NON- AMER. (test 103 ML/MIN/1.73 code = 49643) CALC BUN/CREAT (test code = 32 RATIO 2235) SODIUM (test code = 2231) 139 MEQ/L POTASSIUM (test code = 2228) 4.3 MEQ/L CHLORIDE (test code = 2215) 99 MEQ/L CARBON DIOXIDE (test code = 24 MEQ/L 2206) CALCIUM (test code = 2209) 9.4 MG/DL PROTEIN, TOTAL (test code = 6.8 G/DL 2228) ALBUMIN (test code = 2201) 4.2 G/DL CALC GLOBULIN (test code = 2.6 G/DL 2240) CALC A/G RATIO (test code = 1.6 RATIO 2234) BILIRUBIN, TOTAL (test code = 0.3 MG/DL 2207) ALKALINE PHOSPHATASE (test 82 U/L code = 2204) AST (test code = 2218) 14 U/L ALT (test code = 2219) 16 U/L CBC W/AUTO [id number] 00:00:00 Test Item Value Reference Range Interpretation Comments WBC (test code = 1001) 7.2 K/UL RBC (test code = 1002) 4.50 M/UL HEMOGLOBIN (test code = 1003) 13.4 G/DL HEMATOCRIT (test code = 1004) 39.3 % MCV (test code = 1005) 87.3 fL MCH (test code = 1006) 29.8 PG MCHC (test code = 1007) 34.1 G/DL RDW (test code = 1038) 12.5 % NEUTROPHILS (test code = 1008) 73.1 % LYMPHOCYTES (test code = 1010) 15.9 % MONOCYTES (test code = 1011) 6.7 % EOSINOPHILS (test code = 1012) 3.6 % BASOPHILS (test code = 1013) 0.7 % PLATELET COUNT (test code = 1015) 309 K/UL CBC W/AUTO [id number] 00:00:00 Test Item Value Reference Range Interpretation Comments WBC (test code = 1001) 7.2 K/UL RBC (test code = 1002) 4.50 M/UL HEMOGLOBIN (test code = 1003) 13.4 G/DL HEMATOCRIT (test code = 1004) 39.3 % MCV (test code = 1005) 87.3 fL MCH (test code = 1006) 29.8 PG MCHC (test code = 1007) 34.1 G/DL RDW (test code = 1038) 12.5 % NEUTROPHILS (test code = 1008) 73.1 % LYMPHOCYTES (test code = 1010) 15.9 % MONOCYTES (test code = 1011) 6.7 % EOSINOPHILS (test code = 1012) 3.6 % BASOPHILS (test code = 1013) 0.7 % PLATELET COUNT (test code = 1015) 309 K/UL CBC W/AUTO [id number] 00:00:00 Test Item Value Reference Range Interpretation Comments WBC (test code = 1001) 7.2 K/UL RBC (test code = 1002) 4.50 M/UL HEMOGLOBIN (test code = 1003) 13.4 G/DL HEMATOCRIT (test code = 1004) 39.3 % MCV (test code = 1005) 87.3 fL MCH (test code = 1006) 29.8 PG MCHC (test code = 1007) 34.1 G/DL RDW (test code = 1038) 12.5 % NEUTROPHILS (test code = 1008) 73.1 % LYMPHOCYTES (test code = 1010) 15.9 % MONOCYTES (test code = 1011) 6.7 % EOSINOPHILS (test code = 1012) 3.6 % BASOPHILS (test code = 1013) 0.7 % PLATELET COUNT (test code = 1015) 309 K/UL HEMOGLOBIN [id number] 00:00:00 Test Item Value Reference Range Interpretation Comments HEMOGLOBIN A1c (test code = 05623) 8.1 % HEMOGLOBIN [id number] 00:00:00 Test Item Value Reference Range Interpretation Comments HEMOGLOBIN A1c (test code = 95212) 8.1 % COMPREHENSIVE METABOLIC [id number] 00:00:00 Test Item Value Reference Range Interpretation Comments GLUCOSE (test code = 2217) 156 MG/DL BUN (test code = 2208) 16 MG/DL CREATININE (test code = 2214) 0.79 MG/DL eGFR AMER. (test code 112 ML/MIN/1.73 = 15586) eGFR NON- AMER. (test 97 ML/MIN/1.73 code = 29971) CALC BUN/CREAT (test code = 20 RATIO 2235) SODIUM (test code = 2231) 141 MEQ/L POTASSIUM (test code = 2228) 4.3 MEQ/L CHLORIDE (test code = 2215) 99 MEQ/L CARBON DIOXIDE (test code = 24 MEQ/L 220) CALCIUM (test code = 2209) 9.6 MG/DL PROTEIN, TOTAL (test code = 7.1 G/DL 2228) ALBUMIN (test code = 2201) 4.6 G/DL CALC GLOBULIN (test code = 2.5 G/DL 2239) CALC A/G RATIO (test code = 1.8 RATIO 2234) BILIRUBIN, TOTAL (test code = 0.5 MG/DL 2206) ALKALINE PHOSPHATASE (test 76 U/L code = 2204) AST (test code = 2218) 29 U/L ALT (test code = 2219) 40 U/L COMPREHENSIVE METABOLIC [id number] 00:00:00 Test Item Value Reference Range Interpretation Comments GLUCOSE (test code = 2217) 156 MG/DL BUN (test code = 2208) 16 MG/DL CREATININE (test code = 2214) 0.79 MG/DL eGFR AMER. (test code 112 ML/MIN/1.73 = 91210) eGFR NON- AMER. (test 97 ML/MIN/1.73 code = 22772) CALC BUN/CREAT (test code = 20 RATIO 2235) SODIUM (test code = 2231) 141 MEQ/L POTASSIUM (test code = 2228) 4.3 MEQ/L CHLORIDE (test code = 2215) 99 MEQ/L CARBON DIOXIDE (test code = 24 MEQ/L 2205) CALCIUM (test code = 2209) 9.6 MG/DL PROTEIN, TOTAL (test code = 7.1 G/DL 2228) ALBUMIN (test code = 2201) 4.6 G/DL CALC GLOBULIN (test code = 2.5 G/DL 2239) CALC A/G RATIO (test code = 1.8 RATIO 4) BILIRUBIN, TOTAL (test code = 0.5 MG/DL 2206) ALKALINE PHOSPHATASE (test 76 U/L code = 2204) AST (test code = 2218) 29 U/L ALT (test code = 2219) 40 U/L LIPID [id number] 00:00:00 Test Item Value Reference Range Interpretation Comments CHOLESTEROL (test code = 2210) 224 MG/DL TRIGLYCERIDES (test code = 2232) 142 MG/DL HDL CHOLESTEROL (test code = 2220) 53 MG/DL CALC LDL CHOL (test code = 2237) 143 MG/DL RISK RATIO LDL/HDL (test code = 2.69 RATIO 2238) LIPID [id number] 00:00:00 Test Item Value Reference Range Interpretation Comments CHOLESTEROL (test code = 2210) 224 MG/DL TRIGLYCERIDES (test code = 2232) 142 MG/DL HDL CHOLESTEROL (test code = 2220) 53 MG/DL CALC LDL CHOL (test code = 2237) 143 MG/DL RISK RATIO LDL/HDL (test code = 2.69 RATIO 2238) THYROID II PROFILE (T3U, T4, T7, TSH)[id number] 00:00:00 Test Item Value Reference Range Interpretation Comments T3 UPTAKE (test code = 2817) 32.6 % T4 (THYROXINE) (test code = 7.4 UG/DL 2819) CALCULATED T7 (FTI) (test code = 2.41 2820) TSH (test code = 2821) 1.610 UIU/ML THYROID II PROFILE (T3U, T4, T7, TSH)[id number] 00:00:00 Test Item Value Reference Range Interpretation Comments T3 UPTAKE (test code = 2817) 32.6 % T4 (THYROXINE) (test code = 7.4 UG/DL 2819) CALCULATED T7 (FTI) (test code = 2.41 2820) TSH (test code = 2821) 1.610 UIU/ML CBC W/AUTO [id number] 00:00:00 Test Item Value Reference Range Interpretation Comments WBC (test code = 1001) 7.3 K/UL RBC (test code = 1002) 4.45 M/UL HEMOGLOBIN (test code = 1003) 13.2 G/DL HEMATOCRIT (test code = 1004) 38.5 % MCV (test code = 1005) 86.5 fL MCH (test code = 1006) 29.7 PG MCHC (test code = 1007) 34.3 G/DL RDW (test code = 1038) 12.7 % NEUTROPHILS (test code = 1008) 74.0 % LYMPHOCYTES (test code = 1010) 16.3 % MONOCYTES (test code = 1011) 6.0 % EOSINOPHILS (test code = 1012) 3.0 % BASOPHILS (test code = 1013) 0.7 % PLATELET COUNT (test code = 1015) 325 K/UL HEMOGLOBIN [id number] 00:00:00 Test Item Value Reference Range Interpretation Comments HEMOGLOBIN A1c (test code = 62955) 7.1 % HEMOGLOBIN [id number] 00:00:00 Test Item Value Reference Range Interpretation Comments HEMOGLOBIN A1c (test code = 64151) 7.1 % HEMOGLOBIN [id number] 00:00:00 Test Item Value Reference Range Interpretation Comments HEMOGLOBIN A1c (test code = 14733) 7.1 % CBC W/AUTO [id number] 00:00:00 Test Item Value Reference Range Interpretation Comments WBC (test code = 1001) 7.3 K/UL RBC (test code = 1002) 4.45 M/UL HEMOGLOBIN (test code = 1003) 13.2 G/DL HEMATOCRIT (test code = 1004) 38.5 % MCV (test code = 1005) 86.5 fL MCH (test code = 1006) 29.7 PG MCHC (test code = 1007) 34.3 G/DL RDW (test code = 1038) 12.7 % NEUTROPHILS (test code = 1008) 74.0 % LYMPHOCYTES (test code = 1010) 16.3 % MONOCYTES (test code = 1011) 6.0 % EOSINOPHILS (test code = 1012) 3.0 % BASOPHILS (test code = 1013) 0.7 % PLATELET COUNT (test code = 1015) 325 K/UL CBC W/AUTO [id number] 00:00:00 Test Item Value Reference Range Interpretation Comments WBC (test code = 1001) 7.3 K/UL RBC (test code = 1002) 4.45 M/UL HEMOGLOBIN (test code = 1003) 13.2 G/DL HEMATOCRIT (test code = 1004) 38.5 % MCV (test code = 1005) 86.5 fL MCH (test code = 1006) 29.7 PG MCHC (test code = 1007) 34.3 G/DL RDW (test code = 1038) 12.7 % NEUTROPHILS (test code = 1008) 74.0 % LYMPHOCYTES (test code = 1010) 16.3 % MONOCYTES (test code = 1011) 6.0 % EOSINOPHILS (test code = 1012) 3.0 % BASOPHILS (test code = 1013) 0.7 % PLATELET COUNT (test code = 1015) 325 K/UL LIPID [id number] 00:00:00 Test Item Value Reference Range Interpretation Comments CHOLESTEROL (test code = 2210) 223 MG/DL TRIGLYCERIDES (test code = 2232) 260 MG/DL HDL CHOLESTEROL (test code = 2220) 54 MG/DL CALC LDL CHOL (test code = 2237) 117 MG/DL RISK RATIO LDL/HDL (test code = 2.17 RATIO 2238) CBC W/AUTO [id number] 00:00:00 Test Item Value Reference Range Interpretation Comments WBC (test code = 1001) 5.4 K/UL RBC (test code = 1002) 4.13 M/UL HEMOGLOBIN (test code = 12.4 G/DL 1003) HEMATOCRIT (test code = 35.3 % 1004) MCV (test code = 1005) 85.5 fL MCH (test code = 1006) 30.0 PG MCHC (test code = 1007) 35.1 G/DL RDW (test code = 1038) 12.9 % NEUTROPHILS (test code = TEST NOT PERFORMED % 1008) PLATELET COUNT (test 297 K/UL code = 1015) CBC W/AUTO [id number] 00:00:00 Test Item Value Reference Range Interpretation Comments WBC (test code = 1001) 5.4 K/UL RBC (test code = 1002) 4.13 M/UL HEMOGLOBIN (test code = 12.4 G/DL 1003) HEMATOCRIT (test code = 35.3 % 1004) MCV (test code = 1005) 85.5 fL MCH (test code = 1006) 30.0 PG MCHC (test code = 1007) 35.1 G/DL RDW (test code = 1038) 12.9 % NEUTROPHILS (test code = TEST NOT PERFORMED % 1008) PLATELET COUNT (test 297 K/UL code = 1015) CBC W/AUTO [id number] 00:00:00 Test Item Value Reference Range Interpretation Comments WBC (test code = 1001) 5.4 K/UL RBC (test code = 1002) 4.13 M/UL HEMOGLOBIN (test code = 12.4 G/DL 1003) HEMATOCRIT (test code = 35.3 % 1004) MCV (test code = 1005) 85.5 fL MCH (test code = 1006) 30.0 PG MCHC (test code = 1007) 35.1 G/DL RDW (test code = 1038) 12.9 % NEUTROPHILS (test code = TEST NOT PERFORMED % 1008) PLATELET COUNT (test 297 K/UL code = 1015) HEMOGLOBIN [id number] 00:00:00 Test Item Value Reference Range Interpretation Comments HEMOGLOBIN A1c (test code = 03550) 7.3 % HEMOGLOBIN [id number] 00:00:00 Test Item Value Reference Range Interpretation Comments HEMOGLOBIN A1c (test code = 58879) 7.3 % HEMOGLOBIN [id number] 00:00:00 Test Item Value Reference Range Interpretation Comments HEMOGLOBIN A1c (test code = 78852) 7.3 % COMPREHENSIVE METABOLIC [id number] 00:00:00 Test Item Value Reference Range Interpretation Comments GLUCOSE (test code = 2217) 111 MG/DL BUN (test code = 2208) 18 MG/DL CREATININE (test code = 2214) 0.62 MG/DL eGFR AMER. (test code 125 ML/MIN/1.73 = 77694) eGFR NON- AMER. (test 108 ML/MIN/1.73 code = 30003) CALC BUN/CREAT (test code = 29 RATIO 2235) SODIUM (test code = 2231) 141 MEQ/L POTASSIUM (test code = 2228) 4.3 MEQ/L CHLORIDE (test code = 2215) 99 MEQ/L CARBON DIOXIDE (test code = 23 MEQ/L 220) CALCIUM (test code = 2209) 9.6 MG/DL PROTEIN, TOTAL (test code = 7.3 G/DL 2228) ALBUMIN (test code = 2201) 4.7 G/DL CALC GLOBULIN (test code = 2.6 G/DL 2240) CALC A/G RATIO (test code = 1.8 RATIO 2234) BILIRUBIN, TOTAL (test code = 0.2 MG/DL 2206) ALKALINE PHOSPHATASE (test 84 U/L code = 2204) AST (test code = 2218) 16 U/L ALT (test code = 2219) 23 U/L COMPREHENSIVE METABOLIC [id number] 00:00:00 Test Item Value Reference Range Interpretation Comments GLUCOSE (test code = 2217) 111 MG/DL BUN (test code = 2208) 18 MG/DL CREATININE (test code = 2214) 0.62 MG/DL eGFR AMER. (test code 125 ML/MIN/1.73 = 42613) eGFR NON- AMER. (test 108 ML/MIN/1.73 code = 46097) CALC BUN/CREAT (test code = 29 RATIO 2235) SODIUM (test code = 2231) 141 MEQ/L POTASSIUM (test code = 2228) 4.3 MEQ/L CHLORIDE (test code = 2215) 99 MEQ/L CARBON DIOXIDE (test code = 23 MEQ/L 220) CALCIUM (test code = 2209) 9.6 MG/DL PROTEIN, TOTAL (test code = 7.3 G/DL 2228) ALBUMIN (test code = 2201) 4.7 G/DL CALC GLOBULIN (test code = 2.6 G/DL 2239) CALC A/G RATIO (test code = 1.8 RATIO 2234) BILIRUBIN, TOTAL (test code = 0.2 MG/DL 2206) ALKALINE PHOSPHATASE (test 84 U/L code = 2204) AST (test code = 2218) 16 U/L ALT (test code = 2219) 23 U/L LIPID [id number] 00:00:00 Test Item Value Reference Range Interpretation Comments CHOLESTEROL (test code = 2210) 223 MG/DL TRIGLYCERIDES (test code = 2232) 260 MG/DL HDL CHOLESTEROL (test code = 2220) 54 MG/DL CALC LDL CHOL (test code = 2237) 117 MG/DL RISK RATIO LDL/HDL (test code = 2.17 RATIO 2238) LIPID [id number] 00:00:00 Test Item Value Reference Range Interpretation Comments CHOLESTEROL (test code = 2210) 216 MG/DL TRIGLYCERIDES (test code = 2232) 171 MG/DL HDL CHOLESTEROL (test code = 2220) 55 MG/DL CALC LDL CHOL (test code = 2237) 127 MG/DL RISK RATIO LDL/HDL (test code = 2.31 RATIO 2238) HEMOGLOBIN [id number] 00:00:00 Test Item Value Reference Range Interpretation Comments HEMOGLOBIN A1c (test code = 49128) 7.1 % HEMOGLOBIN [id number] 00:00:00 Test Item Value Reference Range Interpretation Comments HEMOGLOBIN A1c (test code = 73052) 7.1 % HEMOGLOBIN [id number] 00:00:00 Test Item Value Reference Range Interpretation Comments HEMOGLOBIN A1c (test code = 35740) 7.1 % PSA, FREE AND [id number] 00:00:00 Test Item Value Reference Range Interpretation Comments PROSTATIC SPECIFIC AG (test code 15.40 NG/ML = 299197) FREE PSA (test code = 313897) 2.66 NG/ML % FREE PSA (test code = 306637) 17 % PSA, FREE AND [id number] 00:00:00 Test Item Value Reference Range Interpretation Comments PROSTATIC SPECIFIC AG (test code 15.40 NG/ML = 151113) FREE PSA (test code = 196492) 2.66 NG/ML % FREE PSA (test code = 848149) 17 % COMPREHENSIVE METABOLIC [id number] 00:00:00 Test Item Value Reference Range Interpretation Comments GLUCOSE (test code = 2217) 133 MG/DL BUN (test code = 2208) 16 MG/DL CREATININE (test code = 2214) 0.68 MG/DL eGFR AMER. (test code 120 ML/MIN/1.73 = 63241) eGFR NON- AMER. (test 104 ML/MIN/1.73 code = 44449) CALC BUN/CREAT (test code = 24 RATIO 2235) SODIUM (test code = 2231) 142 MEQ/L POTASSIUM (test code = 2228) 4.2 MEQ/L CHLORIDE (test code = 2215) 99 MEQ/L CARBON DIOXIDE (test code = 26 MEQ/L 2205) CALCIUM (test code = 2209) 9.6 MG/DL PROTEIN, TOTAL (test code = 7.2 G/DL 2228) ALBUMIN (test code = 2201) 4.6 G/DL CALC GLOBULIN (test code = 2.6 G/DL 2239) CALC A/G RATIO (test code = 1.8 RATIO 4) BILIRUBIN, TOTAL (test code = 0.5 MG/DL 2206) ALKALINE PHOSPHATASE (test 95 U/L code = 2204) AST (test code = 2218) 15 U/L ALT (test code = 2219) 22 U/L COMPREHENSIVE METABOLIC [id number] 00:00:00 Test Item Value Reference Range Interpretation Comments GLUCOSE (test code = 2217) 133 MG/DL BUN (test code = 2208) 16 MG/DL CREATININE (test code = 2214) 0.68 MG/DL eGFR AMER. (test code 120 ML/MIN/1.73 = 08603) eGFR NON- AMER. (test 104 ML/MIN/1.73 code = 54166) CALC BUN/CREAT (test code = 24 RATIO 2235) SODIUM (test code = 2231) 142 MEQ/L POTASSIUM (test code = 2228) 4.2 MEQ/L CHLORIDE (test code = 2215) 99 MEQ/L CARBON DIOXIDE (test code = 26 MEQ/L 220) CALCIUM (test code = 2209) 9.6 MG/DL PROTEIN, TOTAL (test code = 7.2 G/DL 2228) ALBUMIN (test code = 2201) 4.6 G/DL CALC GLOBULIN (test code = 2.6 G/DL 2240) CALC A/G RATIO (test code = 1.8 RATIO 2234) BILIRUBIN, TOTAL (test code = 0.5 MG/DL 2206) ALKALINE PHOSPHATASE (test 95 U/L code = 2204) AST (test code = 2218) 15 U/L ALT (test code = 2219) 22 U/L LIPID [id number] 00:00:00 Test Item Value Reference Range Interpretation Comments CHOLESTEROL (test code = 2210) 216 MG/DL TRIGLYCERIDES (test code = 2232) 171 MG/DL HDL CHOLESTEROL (test code = 2220) 55 MG/DL CALC LDL CHOL (test code = 2237) 127 MG/DL RISK RATIO LDL/HDL (test code = 2.31 RATIO 2238) PSA, [id number] 00:00:00 Test Item Value Reference Range Interpretation Comments PSA, TOTAL (test code = 2606) 10.8 NG/ML COMPREHENSIVE METABOLIC [id number] 00:00:00 Test Item Value Reference Range Interpretation Comments GLUCOSE (test code = 2217) 185 MG/DL BUN (test code = 2208) 17 MG/DL CREATININE (test code = 2214) 0.79 MG/DL eGFR AMER. (test code 114 ML/MIN/1.73 = 33246) eGFR NON- AMER. (test 98 ML/MIN/1.73 code = 94941) CALC BUN/CREAT (test code = 22 RATIO 2235) SODIUM (test code = 2231) 140 MEQ/L POTASSIUM (test code = 2228) 4.3 MEQ/L CHLORIDE (test code = 2215) 97 MEQ/L CARBON DIOXIDE (test code = 18 MEQ/L 2205) CALCIUM (test code = 2209) 9.4 MG/DL PROTEIN, TOTAL (test code = 7.2 G/DL 2228) ALBUMIN (test code = 2201) 4.6 G/DL CALC GLOBULIN (test code = 2.6 G/DL 2240) CALC A/G RATIO (test code = 1.8 RATIO 2234) BILIRUBIN, TOTAL (test code = 0.4 MG/DL 2206) ALKALINE PHOSPHATASE (test 91 U/L code = 2204) AST (test code = 2218) 14 U/L ALT (test code = 2219) 19 U/L COMPREHENSIVE METABOLIC [id number] 00:00:00 Test Item Value Reference Range Interpretation Comments GLUCOSE (test code = 2217) 185 MG/DL BUN (test code = 2208) 17 MG/DL CREATININE (test code = 2214) 0.79 MG/DL eGFR AMER. (test code 114 ML/MIN/1.73 = 35520) eGFR NON- AMER. (test 98 ML/MIN/1.73 code = 06681) CALC BUN/CREAT (test code = 22 RATIO 2235) SODIUM (test code = 2231) 140 MEQ/L POTASSIUM (test code = 2228) 4.3 MEQ/L CHLORIDE (test code = 2215) 97 MEQ/L CARBON DIOXIDE (test code = 18 MEQ/L 220) CALCIUM (test code = 2209) 9.4 MG/DL PROTEIN, TOTAL (test code = 7.2 G/DL 222) ALBUMIN (test code = 2201) 4.6 G/DL CALC GLOBULIN (test code = 2.6 G/DL 2240) CALC A/G RATIO (test code = 1.8 RATIO 2234) BILIRUBIN, TOTAL (test code = 0.4 MG/DL 2206) ALKALINE PHOSPHATASE (test 91 U/L code = 2204) AST (test code = 2218) 14 U/L ALT (test code = 2219) 19 U/L PSA, [id number] 00:00:00 Test Item Value Reference Range Interpretation Comments PSA, TOTAL (test code = 2606) 10.8 NG/ML PSA, [id number] 00:00:00 Test Item Value Reference Range Interpretation Comments PSA, TOTAL (test code = 2606) 10.8 NG/ML CBC W/AUTO [id number] 00:00:00 Test Item Value Reference Range Interpretation Comments WBC (test code = 1001) 5.5 K/UL RBC (test code = 1002) 4.03 M/UL HEMOGLOBIN (test code = 1003) 12.3 G/DL HEMATOCRIT (test code = 1004) 35.7 % MCV (test code = 1005) 88.6 fL MCH (test code = 1006) 30.5 PG MCHC (test code = 1007) 34.5 G/DL RDW (test code = 1038) 13.0 % NEUTROPHILS (test code = 1008) 62.6 % LYMPHOCYTES (test code = 1010) 21.7 % MONOCYTES (test code = 1011) 9.5 % EOSINOPHILS (test code = 1012) 5.1 % BASOPHILS (test code = 1013) 1.1 % PLATELET COUNT (test code = 1015) 288 K/UL CBC W/AUTO [id number] 00:00:00 Test Item Value Reference Range Interpretation Comments WBC (test code = 1001) 5.5 K/UL RBC (test code = 1002) 4.03 M/UL HEMOGLOBIN (test code = 1003) 12.3 G/DL HEMATOCRIT (test code = 1004) 35.7 % MCV (test code = 1005) 88.6 fL MCH (test code = 1006) 30.5 PG MCHC (test code = 1007) 34.5 G/DL RDW (test code = 1038) 13.0 % NEUTROPHILS (test code = 1008) 62.6 % LYMPHOCYTES (test code = 1010) 21.7 % MONOCYTES (test code = 1011) 9.5 % EOSINOPHILS (test code = 1012) 5.1 % BASOPHILS (test code = 1013) 1.1 % PLATELET COUNT (test code = 1015) 288 K/UL COMPREHENSIVE METABOLIC [id number] 00:00:00 Test Item Value Reference Range Interpretation Comments GLUCOSE (test code = 2217) 159 MG/DL BUN (test code = 2208) 26 MG/DL CREATININE (test code = 2214) 0.66 MG/DL eGFR AMER. (test code 123 ML/MIN/1.73 = 72098) eGFR NON- AMER. (test 106 ML/MIN/1.73 code = 53403) CALC BUN/CREAT (test code = 39 RATIO 2235) SODIUM (test code = 2231) 141 MEQ/L POTASSIUM (test code = 2228) 4.4 MEQ/L CHLORIDE (test code = 2215) 102 MEQ/L CARBON DIOXIDE (test code = 25 MEQ/L 2206) CALCIUM (test code = 2209) 9.3 MG/DL PROTEIN, TOTAL (test code = 7.0 G/DL 2228) ALBUMIN (test code = 2201) 4.4 G/DL CALC GLOBULIN (test code = 2.6 G/DL 2240) CALC A/G RATIO (test code = 1.7 RATIO 2234) BILIRUBIN, TOTAL (test code = 0.5 MG/DL 2207) ALKALINE PHOSPHATASE (test 78 U/L code = 2204) AST (test code = 2218) 12 U/L ALT (test code = 2219) 16 U/L COMPREHENSIVE METABOLIC [id number] 00:00:00 Test Item Value Reference Range Interpretation Comments GLUCOSE (test code = 2217) 159 MG/DL BUN (test code = 2208) 26 MG/DL CREATININE (test code = 2214) 0.66 MG/DL eGFR AMER. (test code 123 ML/MIN/1.73 = 54468) eGFR NON- AMER. (test 106 ML/MIN/1.73 code = 48227) CALC BUN/CREAT (test code = 39 RATIO 2235) SODIUM (test code = 2231) 141 MEQ/L POTASSIUM (test code = 2228) 4.4 MEQ/L CHLORIDE (test code = 2215) 102 MEQ/L CARBON DIOXIDE (test code = 25 MEQ/L 6) CALCIUM (test code = 2209) 9.3 MG/DL PROTEIN, TOTAL (test code = 7.0 G/DL 2228) ALBUMIN (test code = 2201) 4.4 G/DL CALC GLOBULIN (test code = 2.6 G/DL 2240) CALC A/G RATIO (test code = 1.7 RATIO 2234) BILIRUBIN, TOTAL (test code = 0.5 MG/DL 2207) ALKALINE PHOSPHATASE (test 78 U/L code = 2204) AST (test code = 2218) 12 U/L ALT (test code = 2219) 16 U/L LIPID [id number] 00:00:00 Test Item Value Reference Range Interpretation Comments CHOLESTEROL (test code = 2210) 194 MG/DL TRIGLYCERIDES (test code = 2232) 101 MG/DL HDL CHOLESTEROL (test code = 2220) 58 MG/DL CALC LDL CHOL (test code = 2237) 116 MG/DL RISK RATIO LDL/HDL (test code = 2.00 RATIO 2238) LIPID [id number] 00:00:00 Test Item Value Reference Range Interpretation Comments CHOLESTEROL (test code = 2210) 194 MG/DL TRIGLYCERIDES (test code = 2232) 101 MG/DL HDL CHOLESTEROL (test code = 2220) 58 MG/DL CALC LDL CHOL (test code = 2237) 116 MG/DL RISK RATIO LDL/HDL (test code = 2.00 RATIO 2238) PSA, [id number] 00:00:00 Test Item Value Reference Range Interpretation Comments PSA, TOTAL (test code = 2606) 10.1 NG/ML PSA, [id number] 00:00:00 Test Item Value Reference Range Interpretation Comments PSA, TOTAL (test code = 2606) 10.1 NG/ML PSA, [id number] 00:00:00 Test Item Value Reference Range Interpretation Comments PSA, TOTAL (test code = 2606) 10.1 NG/ML HEMOGLOBIN [id number] 00:00:00 Test Item Value Reference Range Interpretation Comments HEMOGLOBIN A1c (test code = 37297) 7.0 % HEMOGLOBIN [id number] 00:00:00 Test Item Value Reference Range Interpretation Comments HEMOGLOBIN A1c (test code = 00843) 7.0 % HEMOGLOBIN [id number] 00:00:00 Test Item Value Reference Range Interpretation Comments HEMOGLOBIN A1c (test code = 14430) 7.0 % CBC W/AUTO [id number] 00:00:00 Test Item Value Reference Range Interpretation Comments WBC (test code = 1001) 5.5 K/UL RBC (test code = 1002) 4.03 M/UL HEMOGLOBIN (test code = 1003) 12.3 G/DL HEMATOCRIT (test code = 1004) 35.7 % MCV (test code = 1005) 88.6 fL MCH (test code = 1006) 30.5 PG MCHC (test code = 1007) 34.5 G/DL RDW (test code = 1038) 13.0 % NEUTROPHILS (test code = 1008) 62.6 % LYMPHOCYTES (test code = 1010) 21.7 % MONOCYTES (test code = 1011) 9.5 % EOSINOPHILS (test code = 1012) 5.1 % BASOPHILS (test code = 1013) 1.1 % PLATELET COUNT (test code = 1015) 288 K/UL [id number] 00:00:00 Test Item Value Reference Range Interpretation Comments FERRITIN (test code = 2075) 146 NG/ML [id number] 00:00:00 Test Item Value Reference Range Interpretation Comments FERRITIN (test code = 2075) 146 NG/ML IRON BINDING CAPACITY AND IRON AND % [id number] 00:00:00 Test Item Value Reference Range Interpretation Comments IRON, SERUM (test code = 2222) 92 UG/DL UNSATURATED IBC (test code = 78835) 255 UG/DL CALCULATED TOTAL IBC (test code = 347 UG/DL 2076) CALCULATED % IRON SAT (test code = 27 % 2078) IRON BINDING CAPACITY AND IRON AND % [id number] 00:00:00 Test Item Value Reference Range Interpretation Comments IRON, SERUM (test code = 2222) 92 UG/DL UNSATURATED IBC (test code = 55467) 255 UG/DL CALCULATED TOTAL IBC (test code = 347 UG/DL 2076) CALCULATED % IRON SAT (test code = 27 % 2078) RETICULOCYTE [id number] 00:00:00 Test Item Value Reference Range Interpretation Comments RETICULOCYTE COUNT (test code = 1018) 0.6 % RETICULOCYTE [id number] 00:00:00 Test Item Value Reference Range Interpretation Comments RETICULOCYTE COUNT (test code = 1018) 0.6 % HEMOGLOBIN [id number] 00:00:00 Test Item Value Reference Range Interpretation Comments HEMOGLOBIN A1c (test code = 86196) 6.6 % HEMOGLOBIN [id number] 00:00:00 Test Item Value Reference Range Interpretation Comments HEMOGLOBIN A1c (test code = 22790) 6.6 % HEMOGLOBIN [id number] 00:00:00 Test Item Value Reference Range Interpretation Comments HEMOGLOBIN A1c (test code = 97234) 6.6 % VITAMIN B 12 AND FOLIC [id number] 00:00:00 Test Item Value Reference Range Interpretation Comments VITAMIN B-12 (test code = 2840) 383 PG/ML FOLIC ACID (test code = 2695) >24.0 NG/ML VITAMIN B 12 AND FOLIC [id number] 00:00:00 Test Item Value Reference Range Interpretation Comments VITAMIN B-12 (test code = 2840) 383 PG/ML FOLIC ACID (test code = 2695) >24.0 NG/ML LIPID [id number] 00:00:00 Test Item Value Reference Range Interpretation Comments CHOLESTEROL (test code = 2210) 201 MG/DL TRIGLYCERIDES (test code = 2232) 273 MG/DL HDL CHOLESTEROL (test code = 2220) 48 MG/DL CALCULATED LDL CHOL (test code = 98 MG/DL 2236) RISK RATIO LDL/HDL (test code = 2.05 RATIO 8) CBC W/AUTO [id number] 00:00:00 Test Item Value Reference Range Interpretation Comments WBC (test code = 1001) 8.8 K/UL RBC (test code = 1002) 4.17 M/UL HEMOGLOBIN (test code = 1003) 11.9 G/DL HEMATOCRIT (test code = 1004) 36.8 % MCV (test code = 1005) 88.2 fL MCH (test code = 1006) 28.5 PG MCHC (test code = 1007) 32.3 G/DL RDW (test code = 1038) 14.0 % NEUTROPHILS (test code = 1008) 73 % LYMPHOCYTES (test code = 1010) 16 % MONOCYTES (test code = 1011) 7 % EOSINOPHILS (test code = 1012) 3 % BASOPHILS (test code = 1013) 1 % PLATELET COUNT (test code = 1015) 337 K/UL CBC W/AUTO [id number] 00:00:00 Test Item Value Reference Range Interpretation Comments WBC (test code = 1001) 8.8 K/UL RBC (test code = 1002) 4.17 M/UL HEMOGLOBIN (test code = 1003) 11.9 G/DL HEMATOCRIT (test code = 1004) 36.8 % MCV (test code = 1005) 88.2 fL MCH (test code = 1006) 28.5 PG MCHC (test code = 1007) 32.3 G/DL RDW (test code = 1038) 14.0 % NEUTROPHILS (test code = 1008) 73 % LYMPHOCYTES (test code = 1010) 16 % MONOCYTES (test code = 1011) 7 % EOSINOPHILS (test code = 1012) 3 % BASOPHILS (test code = 1013) 1 % PLATELET COUNT (test code = 1015) 337 K/UL CBC W/AUTO [id number] 00:00:00 Test Item Value Reference Range Interpretation Comments WBC (test code = 1001) 8.8 K/UL RBC (test code = 1002) 4.17 M/UL HEMOGLOBIN (test code = 1003) 11.9 G/DL HEMATOCRIT (test code = 1004) 36.8 % MCV (test code = 1005) 88.2 fL MCH (test code = 1006) 28.5 PG MCHC (test code = 1007) 32.3 G/DL RDW (test code = 1038) 14.0 % NEUTROPHILS (test code = 1008) 73 % LYMPHOCYTES (test code = 1010) 16 % MONOCYTES (test code = 1011) 7 % EOSINOPHILS (test code = 1012) 3 % BASOPHILS (test code = 1013) 1 % PLATELET COUNT (test code = 1015) 337 K/UL HEMOGLOBIN [id number] 00:00:00 Test Item Value Reference Range Interpretation Comments HEMOGLOBIN A1c (test code = 84558) 7.8 % HEMOGLOBIN [id number] 00:00:00 Test Item Value Reference Range Interpretation Comments HEMOGLOBIN A1c (test code = 13737) 7.8 % HEMOGLOBIN [id number] 00:00:00 Test Item Value Reference Range Interpretation Comments HEMOGLOBIN A1c (test code = 94446) 7.8 % THYROID II PROFILE (T3U, T4, T7, TSH)[id number] 00:00:00 Test Item Value Reference Range Interpretation Comments T3 UPTAKE (test code = 2817) 26.5 % T4 (THYROXINE) (test code = 2819) 6.8 UG/DL CALCULATED T7 (FTI) (test code = 1.80 2820) TSH (test code = 2821) 1.0 UIU/ML THYROID II PROFILE (T3U, T4, T7, TSH)[id number] 00:00:00 Test Item Value Reference Range Interpretation Comments T3 UPTAKE (test code = 2817) 26.5 % T4 (THYROXINE) (test code = 2819) 6.8 UG/DL CALCULATED T7 (FTI) (test code = 1.80 2820) TSH (test code = 2821) 1.0 UIU/ML COMPREHENSIVE METABOLIC [id number] 00:00:00 Test Item Value Reference Range Interpretation Comments GLUCOSE (test code = 2217) 151 MG/DL BUN (test code = 2208) 25 MG/DL CREATININE (test code = 2214) 0.9 MG/DL eGFR AMER. (test code 105 ML/MIN/1.73 = 11285) eGFR NON- AMER. (test 87 ML/MIN/1.73 code = 34381) CALCULATED BUN/CREAT (test 28 RATIO code = 2235) SODIUM (test code = 2231) 138 MEQ/L POTASSIUM (test code = 2228) 4.1 MEQ/L CHLORIDE (test code = 2215) 103 MEQ/L CARBON DIOXIDE (test code = 23 MEQ/L 220) CALCIUM (test code = 2209) 9.6 MG/DL PROTEIN, TOTAL (test code = 7.1 G/DL 2228) ALBUMIN (test code = 2201) 4.5 G/DL CALCULATED GLOBULIN (test 2.6 G/DL code = 2240) CALCULATED A/G RATIO (test 1.7 RATIO code = 2234) BILIRUBIN, TOTAL (test code = 0.4 MG/DL 2206) ALKALINE PHOSPHATASE (test 74 U/L code = 2204) SGOT (AST) (test code = 2218) 16 U/L SGPT (ALT) (test code = 2219) 19 U/L COMPREHENSIVE METABOLIC [id number] 00:00:00 Test Item Value Reference Range Interpretation Comments GLUCOSE (test code = 2217) 151 MG/DL BUN (test code = 2208) 25 MG/DL CREATININE (test code = 2214) 0.9 MG/DL eGFR AMER. (test code 105 ML/MIN/1.73 = 28942) eGFR NON- AMER. (test 87 ML/MIN/1.73 code = 54238) CALCULATED BUN/CREAT (test 28 RATIO code = 2235) SODIUM (test code = 2231) 138 MEQ/L POTASSIUM (test code = 2228) 4.1 MEQ/L CHLORIDE (test code = 2215) 103 MEQ/L CARBON DIOXIDE (test code = 23 MEQ/L 2205) CALCIUM (test code = 2209) 9.6 MG/DL PROTEIN, TOTAL (test code = 7.1 G/DL 2228) ALBUMIN (test code = 2201) 4.5 G/DL CALCULATED GLOBULIN (test 2.6 G/DL code = 2240) CALCULATED A/G RATIO (test 1.7 RATIO code = 2234) BILIRUBIN, TOTAL (test code = 0.4 MG/DL 2206) ALKALINE PHOSPHATASE (test 74 U/L code = 2204) SGOT (AST) (test code = 2218) 16 U/L SGPT (ALT) (test code = 2219) 19 U/L LIPID [id number] 00:00:00 Test Item Value Reference Range Interpretation Comments CHOLESTEROL (test code = 2210) 201 MG/DL TRIGLYCERIDES (test code = 2232) 273 MG/DL HDL CHOLESTEROL (test code = 2220) 48 MG/DL CALCULATED LDL CHOL (test code = 98 MG/DL 7) RISK RATIO LDL/HDL (test code = 2.05 RATIO 2238)
[2023-02-09 09:52] LABS: Urine Bacteria None Seen /HPF (<20); Urine Mucus 2+ /HPF (None Seen); Urine RBC >50 /HPF (None Seen)
--- NOTE | 2023-02-09 09:56 | RAD REPORT ---
EXAM DESCRIPTION: CT - [facility] Protocol - 02/09/2023 9:38 am CLINICAL HISTORY: painless hematuria COMPARISON: [facility] Protocol dated 01/24/2018 TECHNIQUE: Thin cut axial CT imaging of the abdomen and pelvis was performed without IV contrast. Mu ltiplanar reformats were generated and reviewed. All CT scans are performed using dose optimization technique as appropriate and may include automated exposure control or mA/KV adjustment according to patient size. FINDINGS: No suspicious findings in the lung bases. The liver, spleen, and pancreas show no suspicious findings. Gallbladder and biliary tree are also wi thout suspicious finding. Symmetric renal contour, without suspicious parenchymal findings within limits of noncontrast techniq ue. No evidence of radiopaque calculi or hydroureteronephrosis. No dilated bowel loops or bowel wall thickening. Stable central mesenteric fat stranding, nonspecific . No free air, free fluid or other inflammatory stranding. No hernia, mass or bulky lymphadenopathy. Enlarged prostate or prostatic residual, with posterior calcifications. Appearance is stable. The urinary bladder is suboptimally distended limiting evaluation. Lobulated hyperdense material with in the bladder lumen may represent blood clots. No suspicious bony findings. IMPRESSION: Lobulated hyperdense material within suboptimally distended urinary bladder, may represe nt blood clots. Stable enlargement of the prostate or prostatic gland residual. No hydroureteronephrosis or calculi.
--- NOTE | 2023-02-09 10:27 | EDPHYS ---
Physician Documentation [facility] Name: Bryan Crawford Age: 67 yrs Sex: Male : 1955 Arrival Date: 02/09/2023 Time: 09:11 Bed 14 Private MD: ED Physician Richard Cornejo HPI: 02/09 09:24 This 67 yrs old Male presents to ER via Ambulatory with complaints of Urinary snw Problem. 09:24 The patient presents with hematuria. Onset: The symptoms/episode began/occurred 8 snw day(s) ago, and became persistent. Associated signs and symptoms: The patient has no apparent associated signs or symptoms, Pertinent negatives: dysuria, back pain. Severity of symptoms: At their worst the symptoms were moderate. The patient has not experienced similar symptoms in the past. seen per [facility]. Historical: - Allergies: : No Known Allergies; cm9 - PMHx: 09:23 Diabetes - NIDDM; Hypertension; cm9 - PSHx: 09: prostate; cm9 - Immunization history:: Adult Immunizations up to date, Client reports receiving the 2nd dose of the Covid vaccine. - Social history:: Smoking status: Patient denies any tobacco usage or history of. Patient/guardian denies using alcohol. ROS: 09:23 Constitutional: Negative for fever, chills, and weight loss, Eyes: Negative for injury, snw pain, redness, and discharge, ENT: Negative for injury, pain, and discharge, Neck: Negative for injury, pain, and swelling, Cardiovascular: Negative for chest pain, palpitations, and edema, Respiratory: Negative for shortness of breath, cough, wheezing, and pleuritic chest pain, Abdomen/GI: Negative for abdominal pain, nausea, vomiting, diarrhea, and constipation, Back: Negative for injury and pain, MS/Extremity: Negative for injury and deformity, Skin: Negative for injury, rash, and discoloration, Neuro: Negative for headache, weakness, numbness, tingling, and seizure, Psych: Negative for depression, anxiety, suicide ideation, homicidal ideation, and hallucinations. 09:23 : Positive for hematuria. Exam: 09:23 Constitutional: This is a well developed, well nourished patient who is awake, alert, snw and in no acute distress. Head/Face: Normocephalic, atraumatic. Eyes: Pupils equal round and reactive to light, extra-ocular motions intact. Lids and lashes normal. Conjunctiva and sclera are non-icteric and not injected. Cornea within normal limits. Periorbital areas with no swelling, redness, or edema. ENT: Nares patent. No nasal discharge, no septal abnormalities noted. Tympanic membranes are normal and external auditory canals are clear. Oropharynx with no redness, swelling, or masses, exudates, or evidence of obstruction, uvula midline. Mucous membranes moist. Neck: Trachea midline, no thyromegaly or masses palpated, and no cervical lymphadenopathy. Supple, full range of motion without nuchal rigidity, or vertebral point tenderness. No Meningismus. Chest/axilla: Normal chest wall appearance and motion. Nontender with no deformity. No lesions are appreciated. Cardiovascular: Regular rate and rhythm with a normal S1 and S2. No gallops, murmurs, or rubs. Normal PMI, no JVD. No pulse deficits. Respiratory: Lungs have equal breath sounds bilaterally, clear to auscultation and percussion. No rales, rhonchi or wheezes noted. No increased work of breathing, no retractions or nasal flaring. Abdomen/GI: Soft, non-tender, with normal bowel sounds. No distension or tympany. No guarding or rebound. No evidence of tenderness throughout. Back: No spinal tenderness. No costovertebral tenderness. Full range of motion. Skin: Warm, dry with normal turgor. Normal color with no rashes, no lesions, and no evidence of cellulitis. MS/ Extremity: Pulses equal, no cyanosis. Neurovascular intact. Full, normal range of motion. Neuro: Awake and alert, GCS 15, oriented to person, place, time, and situation. Cranial nerves II-XII grossly intact. Motor strength 5/5 in all extremities. Sensory grossly intact. Cerebellar exam normal. Normal gait. Vital Signs: 09:18 BP 144 / 90; Pulse 69; Resp 18; Temp 98.1; Pulse Ox 97% ; cm9 09:18 Weight 86.18 kg; cm9 09:18 Height 5 ft. 9 in. ; cm9 10:00 BP 141 / 73; Pulse 63; Resp 18; Pulse Ox 98% on R/A; eh3 MDM: 09:25 Patient medically screened. snw 09:59 Differential diagnosis: urinary retention, prostatitis, urethritis, bladder ca. Data snw reviewed: vital signs, nurses notes, radiologic studies, CT scan. Counseling: I had a detailed discussion with the patient and/or guardian regarding: the historical points, exam findings, and any diagnostic results supporting the discharge/admit diagnosis, radiology results, the need for outpatient follow up, to return to the emergency department if symptoms worsen or persist or if there are any questions or concerns that arise at home, pt is a non-smoker. Special discussion: Based on the history and exam findings, there is no indication for further emergent testing or inpatient evaluation. I discussed with the patient/guardian the need to see the primary care provider for further evaluation of the symptoms. I discussed with the patient/guardian the need to see the urologist for further evaluation of the symptoms. ED course: CT does not show bladder mass, will discuss need for f/u with pt and ensure that risk of not following up is relayed . 02/09 09:23 Order name: Urine Culture snw 02/09 09:41 Order name: Urine Microscopic Only; Complete Time: 10:15 EDMS 02/09 09:23 Order name: CT Stone Protocol; Complete Time: 09:59 snw Administered Medications: No medications were administered Disposition: 10:41 Co-signature as Attending Physician, Richard PALENCIA/CROP SPECIALIST's history reviewed, patient ms3 interviewed, and examined. HPI: 67-year-old male with past medical history of diabetes and hypertension presents for 8 days of dysuria. Patient denies back pain. My personal exam of patient reveals: On exam patient is alert and orient x4, no apparent distress. Heart rate and rhythm are regular without murmurs rubs or gallops. Lungs clear to auscultation bilaterally. Abdomen is nontender to palpation with bowel sounds present. No CVA tenderness is present. Urinalysis reveals white blood cells and red blood cells with budding yeast. I agree with assessment and care plan and confirm the diagnosis (es) above. 10:43 I reviewed the patient's care provided by Advanced Practice Provider \T\ agree w/ the ms3 diagnosis \T\ care plan. I personally saw the pt \T\ performed a substantive portion of the visit, incldng all aspects of the (History/Exam/Medical Decision Making). Disposition Summary: 02/09/23 10:26 Discharge Ordered Location: Home snw Condition: Stable snw Diagnosis - Hematuria, unspecified snw Followup: snw - With: Emergency Department - When: As needed - Reason: Worsening of condition Followup: snw - With: Ulises Cleveland MD - When: 2 - 3 days - Reason: Recheck today's complaints, Continuance of care Discharge Instructions: - Discharge Summary Sheet snw - Hematuria, Adult snw - Cystoscopy snw Forms: - Medication Reconciliation Form snw - Thank You Letter snw - Antibiotic Education snw - Prescription Opioid Use snw Signatures: Dispatcher [employer] EDMS Concepcion Jaramillo FNP-C AGILE TEST LEAD-Csnw Richard Cornejo DO DO ms3 Denice Vera, RN RN cm9 Corrections: (The following items were deleted from the chart) 09:41 09:23 Urinalysis+U.LAB.BRZ ordered. EDMS EDMS 10:01 09:23 Test, Urine+UC.LAB.BRZ ordered. EDMS EDMS
--- NOTE | 2023-02-09 10:27 | ER ---
Nurse's Notes [facility] Name: Bryan Crawford Age: 67 yrs Sex: Male : 1955 Arrival Date: 02/09/2023 Time: 09:11 Bed 14 Private MD: Diagnosis: Hematuria, unspecified Presentation: 02/09 09:18 Chief complaint: Patient states: Blood in the urine for eight days. cm9 09:18 Onset of symptoms. cm9 09:18 Method Of Arrival: Ambulatory cm9 09:18 Acuity: MIGUELINA 3 cm9 09:18 Coronavirus screen: At this time, the client does not indicate any symptoms associated cm9 with coronavirus-19. Ebola Screen: No symptoms or risks identified at this time. Initial Sepsis Screen: Does the patient meet any 2 criteria? No. Patient's initial sepsis screen is negative. Initial Sepsis Screen: Does the patient have a suspected source of infection? No. Patient's initial sepsis screen is negative. Risk Assessment: Do you want to hurt yourself or someone else? Patient reports no desire to harm self or others. Triage Assessment: : General: Appears in no apparent distress. Behavior is calm, cooperative. Pain: Denies cm9 pain. Neuro: Level of Consciousness is awake, alert, obeys commands, Oriented to person, place, time, situation. Cardiovascular: Capillary refill < 3 seconds Patient's skin is warm and dry. Respiratory: Airway is patent Respiratory effort is even, unlabored. GI: Abdomen is flat, non-distended. : Reports hematuria x 8 days Denies pain. Historical: - Allergies: : No Known Allergies; cm9 - PMHx: : Diabetes - NIDDM; Hypertension; cm9 - PSHx: : prostate; cm9 - Immunization history:: Adult Immunizations up to date, Client reports receiving the 2nd dose of the Covid vaccine. - Social history:: Smoking status: Patient denies any tobacco usage or history of. Patient/guardian denies using alcohol. Screenin: [facility] ED Fall Risk Assessment (Adult) Score/Fall Risk Level 0 - 2 = Low Risk. Abuse eh3 screen: Denies threats or abuse. Denies injuries from another. Nutritional screening: No deficits noted. Tuberculosis screening: No symptoms or risk factors identified. Assessment: 09:29 General: Appears in no apparent distress. uncomfortable, Behavior is calm, cooperative, eh3 appropriate for age. Pain: Denies pain. Neuro: Level of Consciousness is awake, alert, obeys commands, Oriented to person, place, time, situation. Cardiovascular: Capillary refill < 3 seconds Patient's skin is warm and dry. Respiratory: Airway is patent Respiratory effort is even, unlabored, Respiratory pattern is regular, symmetrical. GI: Abdomen is round non-distended. : Urine is chacho blood. EENT: No signs and/or symptoms were reported regarding the EENT system. Derm: Skin is healthy with good turgor, Skin is pink, warm \T\ dry. Musculoskeletal: Circulation, motion, and sensation intact. 10:00 Reassessment: Patient appears in no apparent distress at this time. Patient and/or eh3 family updated on plan of care and expected duration. Pain level reassessed. Patient is alert, oriented x 3, equal unlabored respirations, skin warm/dry/pink. Vital Signs: 09:18 BP 144 / 90; Pulse 69; Resp 18; Temp 98.1; Pulse Ox 97% ; cm9 09:18 Weight 86.18 kg; cm9 09:18 Height 5 ft. 9 in. ; cm9 10:00 BP 141 / 73; Pulse 63; Resp 18; Pulse Ox 98% on R/A; eh3 ED Course: 09:15 Patient arrived in ED. mr 09:17 Concepcion Jaramillo [facility]C [facility]. snw 09:17 Richard Cornejo DO is Attending Physician. snw 09:20 Triage completed. cm9 09:23 Arm band placed on right wrist. cm9 09:27 Mine Lugo, YON is Primary Nurse. eh3 09:29 Patient has correct armband on for positive identification. Bed in low position. Call eh3 light in reach. Side rails up X2. Adult w/ patient. Pulse ox on. NIBP on. Door closed. Noise minimized. Lights dimmed. 09:40 CT Stone Protocol In Process Unspecified. EDMS 10:25 Ulises Cleveland MD is Referral Physician. snw 10:48 No provider procedures requiring assistance completed. Patient did not have IV access eh3 during this emergency room visit. Administered Medications: No medications were administered Medication: 10:48 VIS not applicable for this client. 3 Outcome: 10:26 Discharge ordered by . david 10:44 Patient left the ED. eh3 10:48 Discharged to home ambulatory, with family. eh3 10:48 Condition: stable 10:48 Discharge instructions given to patient, family, Instructed on discharge instructions, follow up and referral plans. Demonstrated understanding of instructions, follow-up care. Signatures: Dispatcher [employer] EDConcepcion Fang, BRIAN-C MATHEMATICS PROFESSOR-Trice Bess Erin, RN RN eh3 Denice Vera, YON RN cm9
[2023-02-09 11:00] VITALS: TEMP 98.1
[2023-02-09 11:01] VITALS: BP 141/73; O2SAT 98
== END 2023-02-09 10:44 | disposition home or self-care (01) ==
LOC: ER 09:11
DX: R31.9 Hematuria, unspecified (principal)
CPT/HCPCS: 74176; 76377; 81015; 87086; 87088